=== PATIENT | female | born 1965 | race Caucasian/White ===

== ENCOUNTER → 2016-12-06 | Outpatient (CLI) | payer OTHER ==
--- NOTE | 2016-12-07 14:45 | XR ---
EXAMINATION TYPE: XR foot complete RT DATE OF EXAM: 12/06/2016 COMPARISON: NONE HISTORY: Right foot pain, fifth metatarsal TECHNIQUE: Three-view right foot FINDINGS: Plantar calcaneal heel spur is present. No acute fractures are evident. Joint spaces are pr eserved. Soft tissues are normal. IMPRESSION: 1. Plantar calcaneal heel spur.
== END | disposition home or self-care (01) ==
LOC: RADXRYALE 16:01
PROVIDERS: ATTEND Family Medicine
DX: M77.31 Calcaneal spur, right foot (principal)

== ENCOUNTER 2017-06-04 18:53 | Inpatient (IN) | payer OTHER ==
--- NOTE | 2017-06-04 19:39 | ED ---
Abdominal Pain HPI - General Chief Complaint: Abdominal Pain Stated Complaint: Abd.pain Time Seen by Provider: 06/04/17 19:22 Source: patient Mode of arrival: ambulatory Limitations: no limitations - History of Present Illness Initial Comments: Patient complains of right-sided abdominal pain. Her symptoms have been getting worse for couple weeks. She has nausea but no vomiting. She has no back pain. Her pain does not radiate anywhere. Nothing makes it better or worse. It has gotten worse over the last couple weeks. She has no blood in the stool or black or tarry stool. She has no chest pain, lightheadedness or dizziness. She has no pain or swelling in the legs and no palpitations. - Related Data Allergies Allergy/AdvReac Type Severity Reaction Status Date / Time morphine AdvReac Hallucinati Verified 06/04/17 19:17 ons Review of Systems ROS Statement: Those systems with pertinent positive or pertinent negative responses have been documented in the HPI. ROS Other: All systems not noted in ROS Statement are negative. Past Medical History Past Medical History: Diabetes Mellitus Additional Past Medical History / Comment(s): migraines History of Any Multi-Drug Resistant Organisms: None Reported Past Surgical History: Appendectomy, Hysterectomy, Orthopedic Surgery, Tubal Ligation Additional Past Surgical History / Comment(s): eye surgery Past Psychological History: No Psychological Hx Reported Smoking Status: Never smoker Past Alcohol Use History: None Reported Past Drug Use History: None Reported General Exam Limitations: no limitations General appearance: alert, in no apparent distress Head exam: Present: atraumatic, normocephalic, normal inspection Eye exam: Present: normal appearance, PERRL, EOMI. Absent: scleral icterus, conjunctival injection, periorbital swelling ENT exam: Present: normal exam, mucous membranes moist Neck exam: Present: normal inspection. Absent: tenderness, meningismus, lymphadenopathy Respiratory exam: Present: normal lung sounds bilaterally. Absent: respiratory distress, wheezes, rales, rhonchi, stridor Cardiovascular Exam: Present: regular rate, normal rhythm, normal heart sounds. Absent: systolic murmur, diastolic murmur, rubs, gallop, clicks GI/Abdominal exam: Present: soft, normal bowel sounds. Absent: distended, tenderness, guarding, rebound, rigid Extremities exam: Present: normal inspection, full ROM, normal capillary refill. Absent: tenderness, pedal edema, joint swelling, calf tenderness Back exam: Present: normal inspection Neurological exam: Present: alert, oriented X3, CN II-XII intact Psychiatric exam: Present: normal affect, normal mood Skin exam: Present: warm, dry, intact, normal color. Absent: rash Course Vital Signs 06/04/17 19:15 Temperature 98.2 F Pulse Rate 92 Respiratory 18 Rate Blood Pressure 181/78 O2 Sat by Pulse 99 Oximetry Medical Decision Making - Medical Decision Making Patient presents with several weeks of abdominal pain. She had a CAT scan done by her doctor prior to arrival. He demonstrates a large intra-abdominal mass, possibly necrotic tumor. She will be admitted to the hospital. I will consult surgery. Disposition Clinical Impression: Abdominal pain Disposition: ADMITTED IP TO THIS HOSP Condition: Fair Referrals: Kunal Man DO [Primary Care Provider] - 1-2 days
[2017-06-04] MEDS ORDERED: ONDANSETRON 4 MG/2 ML VIAL IVP PRN (21:15)
[2017-06-04 21:19] LABS: Basophils # (A) 0.1 k/uL (0-0.2); Basophils % (A) 1 %; Eosinophils # (A) 0.2 k/uL (0-0.7); Eosinophils % (A) 2 %; HGB 13.3 gm/dL (11.4-16.0); Lymphocytes # (A) 1.6 k/uL (1.0-4.8); Lymphocytes % (A) 18 %; MCH 26.4 pg (25.0-35.0); MCHC 32.5 g/dL (31.0-37.0); MCV 81.2 fL (80.0-100.0); Mean Platelet Volume 7.3; Monocytes # (A) 0.5 k/uL (0-1.0); Monocytes % (A) 5 %; Neutrophils # (A) 6.8 k/uL (1.3-7.7); Neutrophils % (A) 74 %; Platelet Count 297 k/uL (150-450); RBC 5.05 m/uL (3.80-5.40); RDW 12.8 % (11.5-15.5); WBC 9.2 k/uL (3.8-10.6)
[2017-06-04 21:21] LABS: Appearance,Urine Clear (Clear); Bilirubin,Urine Negative (Negative); Blood,Urine Negative (Negative); Color,Urine Light Yellow; Glucose,Urine (UA) Negative (Negative); Ketones,Urine Trace (Negative); Leukocyte Esterase,Urine Negative (Negative); Nitrite,Urine Negative (Negative); Protein,Urine Negative (Negative); Urobilinogen,Urine <2.0 mg/dL (<2.0)
[2017-06-04 21:45] LABS: ALT 26 U/L (9-52); AST 17 U/L (14-36); Albumin 4.1 g/dL (3.5-5.0); Alkaline Phosphatase 85 U/L (38-126); Amylase 46 U/L (30-110); Anion Gap 13 mmol/L; Blood Urea Nitrogen 12 mg/dL (7-17); Calcium 9.6 mg/dL (8.4-10.2); Carbon Dioxide 25 mmol/L (22-30); Chloride 100 mmol/L (98-107); Glucose 212 mg/dL (74-99); Lipase 109 U/L (23-300); Potassium 4.5 mmol/L (3.5-5.1); Sodium 138 mmol/L (137-145); Total Bilirubin 0.5 mg/dL (0.2-1.3)
[2017-06-04 21:51] LABS: INR 1.1 (<1.2); Prothrombin Time 10.3 sec (9.0-12.0)
[2017-06-04] MEDS: ACETAMINOPHEN TAB 325 MG TAB PO PRN (23:19)
[2017-06-04] MEDS: LACTATED RINGERS 1,000 ML IV SCH (23:19)
[2017-06-04 23:43] LABS: Partial Thromboplastin Time 21.9 sec (22.0-30.0)
[2017-06-05] MEDS: traZODone HCL 50 MG TAB PO SCH ×2 (00:33→20:14)
--- NOTE | 2017-06-05 02:59 | HP ---
HISTORY AND PHYSICAL DATE OF SERVICE: 06/04/2017 CHIEF COMPLAINT: Abdominal pain. HISTORY OF PRESENT ILLNESS: This 51-year-old woman with a past medical history of diabetes, history of migraines, section being followed by Dr. Man in the outpatient setting, was complaining of right-sided abdominal pain for the last 2 weeks. The pain is getting worse. The pain is not radiating anywhere and there is no associated hematochezia or melena. The patient because of increased symptoms, the patient went to Dr. Man's office also and outpatient CT scan showed possible large cystic mass of low-density mass involving the anterior aspect of the proximal ascending colon. The possibility of diverticular abscess or necrotic tumor was considered and patient was admitted to the hospital for further evaluation and treatment. There is no history of any fever, rigors. No history of headache, loss of consciousness or seizures. Appendiceal tumor was also possibility according to the CAT scan. PAST MEDICAL HISTORY: History of diabetes, migraines, appendectomy, section, hysterectomy, history of degenerative joint disease. MEDICATIONS: Prior to admission include home medications are: 1. Trazodone 50 mg q.h.s. 2. Januvia 100 mg p.o. daily. 3. Glucotrol 110 mg p.o. 4. Wellbutrin 75 mg p.o. 5. AcipHex 20 mg daily. 6. Lantus 18 units subcu daily. 7. Motrin 800 mg t.i.d. p.r.n. ALLERGIES: MORPHINE. FAMILY HISTORY: History of hypertension, history of myocardial infarction. SOCIAL HISTORY: Previous history of smoking. No history of current smoking. No alcohol intake. REVIEW OF SYSTEMS: ENT: No diminished hearing or vision. CARDIOVASCULAR: No angina or palpitations. Respiratory: No cough or hemoptysis. GI as mentioned earlier. : No dysuria. Nervous System: No numbness or weakness. Allergy/Immunology: No asthma or hay fever. MUSCULOSKELETAL: As mentioned earlier. Hematology/Oncology: No history of anemia. Endocrine: Diabetes mellitus. Constitutional: As mentioned earlier. Dermatology: Negative. Rheumatology: Negative. Psychiatric: As mentioned earlier. PHYSICAL EXAMINATION: Alert and oriented times three. Pulse 85, blood pressure 130/60, respiration 18, temperature 98.2, pulse ox 97% on room air. HEENT: Conjunctivae normal. Neck: No jugular venous distention. Cardiovascular: S1, S2 muffled. Respiration: Breath sounds diminished in the bases. No rhonchi and no crackles. ABDOMEN: Soft, mild diffuse discomfort and tenderness in the base of the abdomen status post healed hernia surgery. Otherwise no guarding, no rigidity. No mass palpable. Bowel sounds present. Legs: No edema and no swelling. Nervous system: Higher functions as mentioned earlier, moves all 4 limbs, no focal motor or sensory deficits. Lymphatics: No lymph nodes palpable in the neck, axillae or groin. Skin: No ulcer, rashes or bleeding. LABS: CBC within normal limits. INR is 1.1, glucose 212. UA noted. ASSESSMENT: 1. Right-sided abdominal pain and colonic mass, rule out diverticular abscess or tumor including appendiceal tumor. 2. Hiatal hernia. 3. Old granulomatous disease. 4. Diabetes type 2. 5. History of migraine. 6. History of section. 7. History of degenerative joint disease. 8. Remote history of nicotine dependence. RECOMMENDATIONS AND DISCUSSION: This 51-year-old woman who presented with multiple complex medical issues, we will monitor the patient closely. Continue the current management. Continue symptomatic treatment. Surgery has been consulted. Symptomatic treatment will be provided. Otherwise, DVT prophylaxis. Guarded prognosis because of multiple complex medical issues and further recommendations to follow. A copy of dictation being forwarded to Dr. Man who is the primary care physician JASON / ALISSON: [id number] /
[2017-06-05] MEDS: ACETAMINOPHEN TAB 325 MG TAB PO PRN (06:01)
[2017-06-05 07:54] LABS: Glucose,Whole Blood 180 mg/dL (75-99)
[2017-06-05] MEDS ORDERED: PEG 3350-NA SULF,BICARB,CL/KCL 4,000 ML BOTTLE PO ONE (08:12)
[2017-06-05] MEDS: LACTATED RINGERS 1,000 ML IV SCH ×3 (10:12→20:29)
[2017-06-05] MEDS: LINAGLIPTIN 5 MG TABLET PO SCH (10:13)
[2017-06-05] MEDS: buPROPion 75 MG TAB PO SCH (10:13)
[2017-06-05] MEDS: glipiZIDE 10 MG TAB PO SCH (10:14)
[2017-06-05] MEDS: HEPARIN SODIUM,PORCINE 5,000 UNIT/ML 1 ML VIAL SQ SCH ×2 (10:14→20:15)
[2017-06-05] MEDS: PANTOPRAZOLE 40 MG TABLET PO SCH (10:14)
[2017-06-05] MEDS: INSULIN DETEMIR 100 UNIT/ML 10 ML VIAL SQ SCH (10:31)
[2017-06-05 11:32] LABS: Glucose,Whole Blood 194 mg/dL (75-99)
[2017-06-05] MEDS ORDERED: IBUPROFEN 400 MG TAB PO STA (11:39)
[2017-06-05] MEDS ORDERED: SUMAtriptan SUCCINATE 50 MG TAB PO STA (12:31)
--- NOTE | 2017-06-05 12:32 | P.GSCN ---
History of Present Illness Consult date: 06/05/17 Reason for Consult: Abdominal pain History of present illness: A 51-year-old female presented on the day of admission to the emergency room to be evaluated for persistent onset several weeks of right side abdominal pain. Patient stated the symptoms had been getting progressively worse felt nausea no vomiting. stated the pain did not radiate anywhere. Nothing seemed to make it better nothing seemed to make it worse no blood in the stool. points to the right lower abdominal wall as to the reference point states that she was seen in her family doctor's office in the outpatient setting on the day of admission was complaining of the right side abdominal pain. Dr. barrientos ordered an outpatient CAT abdominal pelvis scan. CAT scan was done that showed a large cystic mass of low density in the anterior aspect of the proximal ascending colon. Possible diverticular abscess, necrotic tumor to be considered also consider a tumor of the appendix Subsequently the patient is being seen by surgical service for the above mentioned symptoms Patient states her last colonoscopy was anywhere between 10 and 14 years ago with no acute findings Review of Systems Essentially unremarkable except as mentioned in the present illness Past Medical History Past Medical History: Diabetes Mellitus Additional Past Medical History / Comment(s): migraines History of Any Multi-Drug Resistant Organisms: None Reported Past Surgical History: Appendectomy, Section, Hysterectomy, Orthopedic Surgery, Tubal Ligation Additional Past Surgical History / Comment(s): eye surgery(on muscles) , lt knee arthrosocpy x2, rt shoulder rotator cuff, lt shoulder bone spur/arthritis Past Anesthesia/Blood Transfusion Reactions: No Reported Reaction Smoking Status: Former smoker - Past Family History Father Family Medical History: Hypertension Mother Family Medical History: Diabetes Mellitus, Hypertension, Myocardial Infarction ( [place]) Additional Family Medical History / Comment(s): mi x3 Medications and Allergies Home Medications Medication Instructions Recorded Confirmed Type Ibuprofen [Motrin] 800 mg PO TID PRN 06/04/17 06/04/17 History Insulin Glargine,Hum.rec.anlog 18 unit SQ DAILY 06/04/17 06/04/17 History [Lantus Solostar] RABEprazole SODIUM [Aciphex] 20 mg PO DAILY 06/04/17 06/04/17 History buPROPion [Wellbutrin] 75 mg PO DAILY 06/04/17 06/04/17 History glipiZIDE [Glucotrol] 10 mg PO DAILY 06/04/17 06/04/17 History sitaGLIPtin [Januvia] 100 mg PO DAILY 06/04/17 06/04/17 History traZODone HCL 50 mg PO HS 06/04/17 06/04/17 History Allergies Allergy/AdvReac Type Severity Reaction Status Date / Time morphine AdvReac Hallucinati Verified 06/04/17 19:49 ons Surgical - Exam Vital Signs Temp Pulse Resp BP Pulse Ox 98.2 F 92 18 181/78 99 06/04/17 19:15 06/04/17 19:15 06/04/17 19:15 06/04/17 19:15 06/04/17 19:15 GENERAL APPEARANCE: Pleasant 51-year-old patient is alert, oriented, in no acute distress complaint this morning is a migraine headache. VITAL SIGNS: Reviewed HEENT: Head is normocephalic and atraumatic. Pupils are equal and reactive. The nares are patent. Oropharynx is clear without lesions. NECK: Supple without lymphadenopathy. Traches midline. HEART: S1, S2. Regular rate and rhythm. Denying any chest pain when questioning no murmur LUNGS: No crackles or wheezes are heard. Adequate air movement bilaterally no cough on room air ABDOMEN: Soft, tenderness on palpitation to the right lower abdominal wall nondistended with good bowel sounds. No peritoneal signs. No palpable organomegaly or masses. States last bowel movement was Friday this week EXTREMITIES: Normal skin color and turgor. No cyanosis, rash, ulceration, clubbing or edema. Radial pedal pulses are 2/4 bilaterally. NEUROLOGICAL: No focal deficits. Strength and sensation are grossly intact. Results - Labs 06/04/17 21:00 06/04/17 21:15 Abnormal Lab Results - Last 24 Hours (Table) 06/04/17 06/04/17 06/04/17 Range/Units 21:00 21:15 21:15 APTT 21.9 L (22.0-30.0) sec Glucose 212 H (74-99) mg/dL POC Glucose (mg/dL) (75-99) mg/dL C-Reactive Protein (<10.0) mg/L Ur Specific [place] 1.040 H (1.001-1.035) Urine Ketones Trace H (Negative) 06/05/17 06/05/1706/05/18 Range/Units 07:38 07:52 11:22 APTT (22.0-30.0) sec Glucose (74-99) mg/dL POC Glucose (mg/dL) 180 H 194 H (75-99) mg/dL C-Reactive Protein 17.5 H (<10.0) mg/L Ur Specific [place] (1.001-1.035) Urine Ketones (Negative) Diabetes panel 06/04/17 Range/Units 21:15 Sodium 138 (137-145) mmol/L Potassium 4.5 (3.5-5.1) mmol/L Chloride 100 (98-107) mmol/L Carbon Dioxide 25 (22-30) mmol/L BUN 12 (7-17) mg/dL Creatinine 0.54 (0.52-1.04) mg/dL Glucose 212 H (74-99) mg/dL Calcium 9.6 (8.4-10.2) mg/dL AST 17 (14-36) U/L ALT 26 (9-52) U/L Alkaline Phosphatase 85 (38-126) U/L Total Protein 7.0 (6.3-8.2) g/dL Albumin 4.1 (3.5-5.0) g/dL Calcium panel 06/04/17 Range/Units 21:15 Calcium 9.6 (8.4-10.2) mg/dL Albumin 4.1 (3.5-5.0) g/dL Pituitary panel 06/04/17 Range/Units 21:15 Sodium 138 (137-145) mmol/L Potassium 4.5 (3.5-5.1) mmol/L Chloride 100 (98-107) mmol/L Carbon Dioxide 25 (22-30) mmol/L BUN 12 (7-17) mg/dL Creatinine 0.54 (0.52-1.04) mg/dL Glucose 212 H (74-99) mg/dL Calcium 9.6 (8.4-10.2) mg/dL Adrenal panel 06/04/17 Range/Units 21:15 Sodium 138 (137-145) mmol/L Potassium 4.5 (3.5-5.1) mmol/L Chloride 100 (98-107) mmol/L Carbon Dioxide 25 (22-30) mmol/L BUN 12 (7-17) mg/dL Creatinine 0.54 (0.52-1.04) mg/dL Glucose 212 H (74-99) mg/dL Calcium 9.6 (8.4-10.2) mg/dL Total Bilirubin 0.5 (0.2-1.3) mg/dL AST 17 (14-36) U/L ALT 26 (9-52) U/L Alkaline Phosphatase 85 (38-126) U/L Total Protein 7.0 (6.3-8.2) g/dL Albumin 4.1 (3.5-5.0) g/dL Assessment and Plan Assessment: Impression Present on admission persistent right lower quadrant abdominal pain suspect due to diverticular abscess or necrotic tumor as indicated on a computed tomography scan abdomen and pelvis done on June 04 History migraine headaches Elevated C-reactive protein present on admission CAT scan abdomen and pelvis imagings indicate possible appendical tumor Type 2 diabetes insulin requiring Surgical history appendectomy and a hysterectomy Plan We'll start the GoLYTELY bowel prep now Clear liquid diet Nothing by mouth after midnight Scheduled tomorrow for a right colectomy per Dr. aguilar DVT and GI prophylaxis Pain control Surgical consultation note dictated for The above impression and plan of care have been discussed and directed by signing physician. Roberta Palencia nurse practitioner acting as scribe for signing physician.
[2017-06-05] MEDS ORDERED: BUTALB/APAP/CAFF 50-325-40MG TAB PO STA (15:57)
[2017-06-05] MEDS: HYDROcodone/APAP 5-325MG 1 EACH TAB PO PRN (16:41)
[2017-06-05 17:00] LABS: Glucose,Whole Blood 121 mg/dL (75-99)
--- NOTE | 2017-06-05 18:24 | PN ---
PROGRESS NOTE DATE OF SERVICE: 06/05/2017 This 51-year-old woman who was admitted with abdominal pain also had right-sided abdominal swelling and possibly a chronic mass also. No chest pain. No palpitations. No fever. PHYSICAL EXAMINATION: Alert and oriented x3. Pulse 85, blood pressure 130/60, respiration 18, temperature 98.2, pulse ox 97% on room air. HEENT: Conjunctivae normal. NECK: No jugular venous distention. CARDIOVASCULAR SYSTEM: S1, S2 muffled. RESPIRATORY SYSTEM: Breath sounds diminished at the bases. No rhonchi. No crackles. ABDOMEN: Soft. Mild diffuse tenderness on the right side. LEGS: No edema. No swelling. NERVOUS SYSTEM: No focal deficit. LABS: Accu-Cheks 180. Glucose 212. CBC within normal limits. ASSESSMENT: 1. Right-sided abdominal pain and colonic mass. Rule out diverticular abscess or tumor, including appendiceal tumor. 2. Hiatal hernia. 3. Old granulomatous disease. 4. Diabetes mellitus, type 2. 5. History of migraine. 6. History of section. 7. History of degenerative joint disease. 8. Remote history of nicotine dependence. RECOMMENDATIONS AND DISCUSSION: In this 51-year-old woman who presented with multiple complex medical issues, we will monitor the patient closely, continue the current medications, continue with symptomatic treatment. The patient is scheduled for tentative surgery by Dr. Bowling for tomorrow. Otherwise, continue to monitor. DVT prophylaxis. Incentive spirometry. Otherwise basically the differential is between diverticular abscess and necrotic tumor. See orders for further details. Prognosis guarded. Discussed with the patient at length. Closely follow with Dr. Bowling. Broad-spectrum IV antibiotic coverage. MMODL / IJN: [id number] /
[2017-06-05 18:51] LABS: Hemoglobin A1C 7.9 % (4.0-6.0)
[2017-06-05] MEDS: BUTALB/APAP/CAFF 50-325-40MG TAB PO PRN (20:14)
[2017-06-05] MEDS: PIPERACILLIN-TAZOBACTAM 3.375 GM in DEXTROSE/WATER 1 50ML.BAG IVPB SCH (20:15)
[2017-06-06] MEDS: PIPERACILLIN-TAZOBACTAM 3.375 GM in DEXTROSE/WATER 1 50ML.BAG IVPB SCH ×3 (02:04→16:42)
[2017-06-06 06:12] LABS: Glucose,Whole Blood 125 mg/dL (75-99)
[2017-06-06] MEDS: LACTATED RINGERS 1,000 ML IV SCH ×3 (06:18→17:48)
[2017-06-06 07:48] LABS: Basophils % (A) 1 %; Eosinophils # (A) 0.2 k/uL (0-0.7); Eosinophils % (A) 3 %; HCT 40.5 % (34.0-46.0); HGB 12.9 gm/dL (11.4-16.0); Lymphocytes # (A) 1.2 k/uL (1.0-4.8); Lymphocytes % (A) 23 %; MCH 26.2 pg (25.0-35.0); MCHC 31.8 g/dL (31.0-37.0); MCV 82.2 fL (80.0-100.0); Mean Platelet Volume 7.4; Monocytes # (A) 0.3 k/uL (0-1.0); Monocytes % (A) 7 %; Neutrophils # (A) 3.4 k/uL (1.3-7.7); Neutrophils % (A) 66 %; Platelet Count 297 k/uL (150-450); RBC 4.93 m/uL (3.80-5.40); RDW 12.8 % (11.5-15.5); WBC 5.1 k/uL (3.8-10.6)
[2017-06-06 07:55] LABS: Anion Gap 13 mmol/L; Blood Urea Nitrogen 6 mg/dL (7-17); Calcium 9.6 mg/dL (8.4-10.2); Carbon Dioxide 24 mmol/L (22-30); Chloride 103 mmol/L (98-107); Glucose 145 mg/dL (74-99); Potassium 4.4 mmol/L (3.5-5.1); Sodium 140 mmol/L (137-145)
[2017-06-06] MEDS: HYDROcodone/APAP 5-325MG 1 EACH TAB PO PRN (07:57)
[2017-06-06 08:52] LABS: Glucose,Whole Blood 163 mg/dL (75-99)
[2017-06-06] MEDS: ONDANSETRON 4 MG/2 ML VIAL IVP PRN (09:43)
[2017-06-06] MEDS ORDERED: IV FLUID CONTINUATION 1,000 ML IV ONE (10:02)
[2017-06-06] MEDS ORDERED: MIDAZOLAM 2 MG/2 ML VIAL IVP ONE (10:15)
[2017-06-06] MEDS ORDERED: fentaNYL (PF) 50 MCG/ML 2 ML AMP IVP ONE (10:15)
[2017-06-06] MEDS ORDERED: PROMETHAZINE INJ 25 MG/ML 1 ML VIAL IVPB ONE (10:56)
[2017-06-06] MEDS ORDERED: NALOXONE 0.4 MG/ML 1 ML VIAL IV PRN (11:00)
[2017-06-06] MEDS ORDERED: diphenhydrAMINE 50 MG/ML 1 ML VIAL IVP PRN (11:00)
[2017-06-06] MEDS ORDERED: SCOPOLAMINE 1.5MG/72HR PATCH TRANSDERM ONE (11:06)
[2017-06-06] MEDS ORDERED: HEPARIN SODIUM,PORCINE 5,000 UNIT/ML 1 ML VIAL SQ ONE (11:06)
[2017-06-06 11:07] LABS: Glucose,Whole Blood 179 mg/dL (75-99)
[2017-06-06] MEDS ORDERED: NEOSTIGMINE 1 MG/ML 10 ML VIAL ONE (11:39)
[2017-06-06] MEDS ORDERED: PROPOFOL 10 MG/ML 20 ML VIAL IV ONE (11:39)
[2017-06-06] MEDS ORDERED: ROCURONIUM BROMIDE 10 MG/ML 10 ML VIAL IV ONE (11:39)
[2017-06-06] MEDS ORDERED: fentaNYL (PF) 50 MCG/ML 2 ML AMP ONE (11:39)
[2017-06-06] MEDS ORDERED: LIDOCAINE 1% INJ 10MG/ML (20 ML MDV) ONE (11:39)
[2017-06-06] MEDS ORDERED: MIDAZOLAM 2 MG/2 ML VIAL ONE (11:39)
[2017-06-06] MEDS ORDERED: GLYCOPYRROLATE 0.2 MG/ML 2 ML VIAL ONE (11:39)
[2017-06-06] MEDS ORDERED: SUCCINYLCHOLINE CHLORIDE 100 MG/5 ML SYR IV ONE (11:39)
[2017-06-06] MEDS ORDERED: ceFAZolin 1,000 MG/50 ML BAG (PMX) IVPB ONE (12:05)
[2017-06-06] MEDS: glipiZIDE 10 MG TAB PO SCH (12:20)
[2017-06-06] MEDS: INSULIN DETEMIR 100 UNIT/ML 10 ML VIAL SQ SCH (12:20)
[2017-06-06] MEDS: HEPARIN SODIUM,PORCINE 5,000 UNIT/ML 1 ML VIAL SQ SCH ×2 (12:20→21:14)
[2017-06-06] MEDS ORDERED: LACTATED RINGERS 1,000 ML IV ONE (12:58)
[2017-06-06] MEDS: BUPIVACAINE (PF) 0.5% 50 ML, HYDROMORPHONE (PF) 5 MG in SODIUM CHLORIDE 0.9% 200 ML EPIDURAL PRN ×3 (13:21→14:42)
[2017-06-06] MEDS ORDERED: LABETALOL 5 MG/ML VIAL MDV IVP ONE ×2 (13:30→14:45)
[2017-06-06] MEDS ORDERED: BUPIVACAINE (PF) 0.25% 30 ML VIAL EPIDURAL ONE (13:32)
[2017-06-06] MEDS ORDERED: METOCLOPRAMIDE 5 MG/ML 2 ML VIAL IVP PRN (13:41)
[2017-06-06] MEDS ORDERED: ONDANSETRON 4 MG/2 ML VIAL IVP PRN (13:41)
[2017-06-06 14:59] LABS: Glucose,Whole Blood 210 mg/dL (75-99)
[2017-06-06] MEDS ORDERED: INSULIN ASPART 100 UNIT/ML 1 ML 10 ML VIAL SQ ONE ×2 (15:01→22:07)
--- NOTE | 2017-06-06 15:09 | P.OP ---
Date of Procedure: 06/06/17 Preoperative Diagnosis: Right colon mass Postoperative Diagnosis: Right colon mass, deferred pathology Procedure(s) Performed: Right colectomy Partial omentectomy Anesthesia: JORDAN Surgeon: Stefano Bowling Estimated Blood Loss (ml): 100 Pathology: other (Right colon, omentum) Condition: stable Disposition: PACU Description of Procedure: The patient's placed on the operative table in the supine position. She received general anesthesia. Her abdomen was prepped and draped usual sterile fashion. The area was entered through a Incision. The Bookwalter retractors placed a wound. The abdomen explored. There was an inflammatory mass in the proximal right colon. The omentum was caked on top of the mass. The liver transverse colon descending colon and sigmoid colon appeared normal. At this point the right colon was mobilized by dividing the white line of Toldt's. And then the inflamed area was dissected free from the abdominal wall. Next the terminal ileum was transected with a GI stapler. And then the proximal transverse colon was transected with a GI stapler. Using the LigaSure device the mesentery the bowel was divided. And then the specimen was sent to pathology. A portion of omentum was transected and also sent to pathology. Next a [id number] functional end-to-end staple anastomosis created. This was performed using the CINDY and TA stapler. A 3-0 GI silk suture was used as a crotch stitch. The abdomen was irrigated there is no bleeding seen. The clean instruments were used. The fascia is closed loop # 1 PDS suture. The skin was closed with radha. Patient was sent to recovery in stable condition.
[2017-06-06] MEDS: PANTOPRAZOLE 40 MG TABLET PO SCH (16:23)
[2017-06-06] MEDS: LINAGLIPTIN 5 MG TABLET PO SCH (16:23)
[2017-06-06] MEDS: buPROPion 75 MG TAB PO SCH (16:23)
[2017-06-06 17:30] LABS: Glucose,Whole Blood 202 mg/dL (75-99)
[2017-06-06] MEDS: D5-0.45% NACL WITH KCL 20MEQ/L 1,000 ML IV SCH ×2 (18:45→22:06)
--- NOTE | 2017-06-06 21:01 | PN ---
PROGRESS NOTE DATE OF SERVICE: 06/06/2017 This 51-year-old woman who was admitted with right-sided abdominal pain and colonic mass underwent right colectomy and partial omentectomy by Dr. Bowling. The biopsies are pending at this time. No chest pain. No palpitations. No fever. Patient is complaining of abdominal pain. On exam, patient is drowsy post surgery. Pulse 89, blood pressure 130/64, respiration 16, temperature 98.2, pulse ox 96% on room air. HEENT: Conjunctivae normal. NECK: No jugular venous distention. CARDIOVASCULAR SYSTEM: S1, S2 muffled. RESPIRATORY SYSTEM: Breath sounds diminished at the bases. No rhonchi. No crackles. ABDOMEN: Soft. Status post surgery. LEGS: No edema. No swelling. NERVOUS SYSTEM: No focal deficit. LABS: CBC within normal limits. Glucose 145 and 163. ASSESSMENT: 1. Right-sided colonic mass, status post right colectomy as well as partial omentectomy. 2. Hiatal hernia. 3. Old granulomatous disease. 4. Diabetes mellitus, type 2. 5. History of migraine. 6. History of . 7. History of degenerative joint disease. 8. Remote history of nicotine dependence. RECOMMENDATIONS AND DISCUSSION: I recommend to continue current medication, continue symptomatic treatment. Otherwise at this time I would recommend incentive spirometry, DVT prophylaxis, pain medication. Closely follow with Surgery. Await biopsy. Guarded prognosis. Further recommendations to follow. MMODL / IJN: [id number] /
[2017-06-06 21:06] LABS: Glucose,Whole Blood 322 mg/dL (75-99)
[2017-06-06] MEDS: NALBUPHINE 10 MG/ML AMPUL IV PRN (21:09)
[2017-06-06] MEDS: traZODone HCL 50 MG TAB PO SCH (21:09)
[2017-06-06] MEDS ORDERED: INSULIN DETEMIR 100 UNIT/ML 10 ML VIAL SQ ONE (21:22)
[2017-06-07] MEDS: PIPERACILLIN-TAZOBACTAM 3.375 GM in DEXTROSE/WATER 1 50ML.BAG IVPB SCH ×4 (00:25→23:46)
[2017-06-07 00:31] LABS: Glucose,Whole Blood 226 mg/dL (75-99)
[2017-06-07] MEDS: INSULIN ASPART 100 UNIT/ML 1 ML 10 ML VIAL SQ SCH ×5 (01:11→23:57)
[2017-06-07] MEDS: LACTATED RINGERS 1,000 ML IV SCH ×4 (04:58→22:01)
[2017-06-07] MEDS: D5-0.45% NACL WITH KCL 20MEQ/L 1,000 ML IV SCH ×3 (06:15→18:20)
[2017-06-07 06:30] LABS: Glucose,Whole Blood 215 mg/dL (75-99)
[2017-06-07] MEDS: NALBUPHINE 10 MG/ML AMPUL IV PRN ×2 (06:57→14:17)
[2017-06-07] MEDS: glipiZIDE 10 MG TAB PO SCH (07:06)
[2017-06-07 07:19] LABS: Basophils % (A) 0 %; Eosinophils # (A) 0.1 k/uL (0-0.7); Eosinophils % (A) 1 %; HCT 36.4 % (34.0-46.0); HGB 11.8 gm/dL (11.4-16.0); Lymphocytes # (A) 1.2 k/uL (1.0-4.8); Lymphocytes % (A) 16 %; MCHC 32.3 g/dL (31.0-37.0); MCV 83.4 fL (80.0-100.0); Mean Platelet Volume 7.2; Monocytes # (A) 0.5 k/uL (0-1.0); Monocytes % (A) 6 %; Neutrophils # (A) 5.9 k/uL (1.3-7.7); Neutrophils % (A) 76 %; Platelet Count 250 k/uL (150-450); RBC 4.37 m/uL (3.80-5.40); RDW 13.1 % (11.5-15.5); WBC 7.9 k/uL (3.8-10.6)
[2017-06-07] MEDS ORDERED: INSULIN ASPART 100 UNIT/ML 1 ML 10 ML VIAL SQ SCH (07:30)
[2017-06-07 07:35] LABS: Anion Gap 9 mmol/L; Blood Urea Nitrogen 6 mg/dL (7-17); Calcium 8.2 mg/dL (8.4-10.2); Carbon Dioxide 30 mmol/L (22-30); Chloride 96 mmol/L (98-107); Glucose 197 mg/dL (74-99); Potassium 4.3 mmol/L (3.5-5.1); Sodium 135 mmol/L (137-145)
[2017-06-07] MEDS: ALVIMOPAN 12 MG CAPSULE PO SCH ×2 (08:16→19:45)
[2017-06-07] MEDS: PANTOPRAZOLE 40 MG TABLET PO SCH (08:17)
[2017-06-07] MEDS: buPROPion 75 MG TAB PO SCH (08:17)
[2017-06-07] MEDS: INSULIN DETEMIR 100 UNIT/ML 10 ML VIAL SQ SCH (08:17)
[2017-06-07] MEDS: HEPARIN SODIUM,PORCINE 5,000 UNIT/ML 1 ML VIAL SQ SCH ×2 (08:17→19:45)
[2017-06-07] MEDS: LINAGLIPTIN 5 MG TABLET PO SCH (08:28)
--- NOTE | 2017-06-07 08:38 | P.PN ---
Progress Note - Text Date: 06/07/2017 Time: 07 The patient is status post, right colectomy, postoperative day number 1 The patient has no complaints of nausea vomiting or headache. The patient has exhibited some mild itching which seems to be subsiding. The patient does not complain of any lower extremity numbness or weakness. The epidural is running at 11 mL per hour. The epidural will be maintained and adjusted as needed.
[2017-06-07] MEDS: ONDANSETRON 4 MG/2 ML VIAL IVP PRN ×3 (10:05→21:42)
[2017-06-07] MEDS: BUPIVACAINE (PF) 0.5% 50 ML, HYDROMORPHONE (PF) 5 MG in SODIUM CHLORIDE 0.9% 200 ML EPIDURAL PRN (10:39)
[2017-06-07 11:50] LABS: Glucose,Whole Blood 211 mg/dL (75-99)
[2017-06-07 12:41] VITALS: BMI 29.9
--- NOTE | 2017-06-07 13:56 | P.PN ---
Progress Note - Text Progress Note Date: 06/07/17 Patient seen and evaluated. She is comfortable. Minimal nausea. She has an epidural. Family is at bedside. Continue with hospitalization. She reports scoliosis of the spine that worsens headaches. Will monitor.
--- NOTE | 2017-06-07 14:20 | PN ---
PROGRESS NOTE DATE OF SERVICE: 06/07/2017. This 51-year-old woman is admitted right-sided colonic mass, underwent right colectomy as well as partial omentectomy. Biopsies are pending at this time. No chest pain. No palpitations. No fever. PHYSICAL EXAM: Alert and oriented times three. Pulse 94, blood pressure 106/60, respirations 16, temperature 97.2, pulse ox 98% on 2 L. HEENT is conjunctivae normal. Neck is no jugular venous distention. CARDIOVASCULAR: S1, S2. Respiratory: Breath sounds diminished in the bases. No rhonchi. No crackles. ABDOMEN: Soft, status post surgery. Legs are no edema. No swelling. Central nervous system: No focal deficits. Legs no edema. No swelling. LABS: CBC within normal limits. Sodium 135. ASSESSMENT: 1. Right-sided colonic mass status post right colectomy as well as partial omentectomy. 2. Hiatal hernia. 3. Old granulomatous disease. 4. Diabetes type 2. 5. History of migraines. 6. History of . 7. Degenerative joint disease. 8. Remote history of nicotine dependence. RECOMMENDATIONS AND DISCUSSION: Recommend to continue current medications, management and symptomatic treatment. Otherwise, at this time, we will monitor the patient closely. I would recommend incentive spirometry. Advance diet per surgery. Await biopsy report. Further recommendations to follow. MMODL / IJN: [id number] /
[2017-06-07 18:19] LABS: Glucose,Whole Blood 257 mg/dL (75-99)
--- NOTE | 2017-06-07 18:50 | P.PN ---
Subjective Progress Note Date: 06/07/17 The patient is a 51-year-old female status post right hemicolectomy by Dr. Bowling. She is comfortable. Minimal nausea. She has an epidural. Family is at bedside. Objective - Vital Signs Vital signs: Vital Signs Temp 97.3 F L 06/07/17 10:52 Pulse 78 06/07/17 10:52 Resp 16 06/07/17 10:52 BP 143/65 06/07/17 10:52 Pulse Ox 95 06/07/17 10:52 Intake & Output 06/06/17 06/07/17 06/07/17 18:59 06:59 18:59 Intake Total 1422 49.95 231.15 Output Total 270 1300 Balance 1152 49.95 -1068.85 Weight 81.647 kg Intake: IV 1422 Intake, IV Titration 49.95 106.15 Amount Bupivacaine (Pf) 0.5% 50 49.95 106.15 ml Hydromorphone (Pf) 5 mg In Sodium Chloride 0.9 % 200 ml @ Per Protocol EPIDURAL .Q0M PRN Rx#: [id number] Oral 125 Output: Urine 170 1300 Estimated Blood Loss 100 Other: Voiding Method Indwelling Catheter Indwelling Catheter - Exam GENERAL: Well developed and in no acute distress. Pleasant. HEENT: No sclera icterus. Extraocular movements grossly intact. Moist buccal mucosa. Head is atraumatic, normocephalic. Hears conversational speech. No nasal drainage. NECK: Supple without lymphadenopathy. No JV distention. CHEST: Non-labored respirations and equal bilateral excursions. CARDIOVASCULAR: Regular rate and rhythm. Palpable 2+ radial pulses. ABDOMEN: Soft, Nondistended. Dressings clean dry and intact MUSCULOSKELETAL: No clubbing, cyanosis or edema. NEUROLOGIC: No focal or lateralizing signs. PSYCH: Appropriate affect. Alert and oriented to person, place and time. SKIN: Good skin turgor. Well perfused. - Labs CBC & Chem 7: 06/07/17 06:57 06/07/17 06:57 Labs: Abnormal Lab Results - Last 24 Hours (Table) 06/06/17 06/06/17 06/06/17 Range/Units 14:57 17:08 21:05 Sodium (137-145) mmol/L Chloride (98-107) mmol/L BUN (7-17) mg/dL Glucose (74-99) mg/dL POC Glucose (mg/dL) 210 H 202 H 322 H (75-99) mg/dL Calcium (8.4-10.2) mg/dL 06/07/17 06/07/17 06/07/17 Range/Units 00:21 06:10 06:57 Sodium 135 L (137-145) mmol/L Chloride 96 L (98-107) mmol/L BUN 6 L (7-17) mg/dL Glucose 197 H (74-99) mg/dL POC Glucose (mg/dL) 226 H 215 H (75-99) mg/dL Calcium 8.2 L (8.4-10.2) mg/dL 06/07/17 Range/Units 11:48 Sodium (137-145) mmol/L Chloride (98-107) mmol/L BUN (7-17) mg/dL Glucose (74-99) mg/dL POC Glucose (mg/dL) 211 H (75-99) mg/dL Calcium (8.4-10.2) mg/dL Microbiology - Last 24 Hours (Table) 06/05/17 23:28 Urine Culture - Final Urine,Clean Catch 06/05/17 18:12 Blood Culture - Preliminary Blood No Growth after 24 hours Assessment and Plan (1) S/P right hemicolectomy Current Visit: Yes Status: Acute Code(s): Z90.49 - ACQUIRED ABSENCE OF OTHER SPECIFIED PARTS OF DIGESTIVE TRACT SNOMED Code(s): 722591117 (2) Obesity (BMI 30.0-34.9) Current Visit: Yes Status: Acute Code(s): E66.9 - OBESITY, UNSPECIFIED SNOMED Code(s): 817307775 (3) Scoliosis Current Visit: Yes Status: Acute Code(s): M41.9 - SCOLIOSIS, UNSPECIFIED SNOMED Code(s): 890178093 Plan: 1. Continue with hospitalization. 2. She reports scoliosis of the spine that worsens headaches. 3. Will monitor.
[2017-06-07] MEDS: traZODone HCL 50 MG TAB PO SCH (21:35)
[2017-06-07 23:57] LABS: Glucose,Whole Blood 236 mg/dL (75-99)
[2017-06-08 05:14] LABS: Glucose,Whole Blood 240 mg/dL (75-99)
[2017-06-08] MEDS: INSULIN ASPART 100 UNIT/ML 1 ML 10 ML VIAL SQ SCH ×3 (05:17→17:41)
[2017-06-08] MEDS: ONDANSETRON 4 MG/2 ML VIAL IVP PRN (05:18)
[2017-06-08] MEDS: D5-0.45% NACL WITH KCL 20MEQ/L 1,000 ML IV SCH (05:59)
[2017-06-08] MEDS: ACETAMINOPHEN TAB 325 MG TAB PO PRN (06:23)
[2017-06-08 07:21] LABS: Anion Gap 8 mmol/L; Blood Urea Nitrogen 3 mg/dL (7-17); Calcium 8.3 mg/dL (8.4-10.2); Carbon Dioxide 24 mmol/L (22-30); Chloride 94 mmol/L (98-107); Glucose 244 mg/dL (74-99); Potassium 4.3 mmol/L (3.5-5.1); Sodium 126 mmol/L (137-145)
[2017-06-08 07:24] LABS: Basophils % (A) 0 %; Eosinophils % (A) 0 %; HCT 36.3 % (34.0-46.0); HGB 12.2 gm/dL (11.4-16.0); Lymphocytes # (A) 0.6 k/uL (1.0-4.8); Lymphocytes % (A) 6 %; MCH 27.6 pg (25.0-35.0); MCHC 33.6 g/dL (31.0-37.0); MCV 82.1 fL (80.0-100.0); Mean Platelet Volume 6.8; Monocytes # (A) 0.4 k/uL (0-1.0); Monocytes % (A) 4 %; Neutrophils # (A) 8.3 k/uL (1.3-7.7); Neutrophils % (A) 88 %; Platelet Count 243 k/uL (150-450); RBC 4.43 m/uL (3.80-5.40); RDW 12.7 % (11.5-15.5); WBC 9.5 k/uL (3.8-10.6)
[2017-06-08] MEDS ORDERED: DEXAMETHASONE SOD PHOSPHATE 10 MG/ML 1 ML VIAL IV STA (08:20)
[2017-06-08] MEDS ORDERED: SODIUM CHLORIDE 0.9% 2,000 ML IV ONE (08:21)
[2017-06-08] MEDS: KETOROLAC 30 MG/ML 1 ML VIAL IVP SCH ×3 (08:53→17:42)
[2017-06-08] MEDS: BUTALB/APAP/CAFF 50-325-40MG TAB PO PRN ×2 (09:35→15:49)
[2017-06-08] MEDS: HEPARIN SODIUM,PORCINE 5,000 UNIT/ML 1 ML VIAL SQ SCH ×2 (09:35→20:25)
[2017-06-08] MEDS: PANTOPRAZOLE 40 MG TABLET PO SCH (09:36)
[2017-06-08] MEDS: buPROPion 75 MG TAB PO SCH (09:36)
[2017-06-08] MEDS: ALVIMOPAN 12 MG CAPSULE PO SCH ×2 (09:36→20:25)
[2017-06-08] MEDS ORDERED: SUMAtriptan SUCCINATE 6 MG/0.5 ML VIAL SQ STA (10:08)
[2017-06-08 10:09] LABS: Glucose,Whole Blood 202 mg/dL (75-99)
[2017-06-08] MEDS: INSULIN DETEMIR 100 UNIT/ML 10 ML VIAL SQ SCH ×2 (10:12→10:43)
[2017-06-08] MEDS ORDERED: 0.45% NACL WITH KCL 20 MEQ/L 1,000 ML IV SCH (11:00)
[2017-06-08] MEDS: PIPERACILLIN-TAZOBACTAM 3.375 GM in DEXTROSE/WATER 1 50ML.BAG IVPB SCH ×2 (11:06→15:53)
[2017-06-08 11:08] LABS: Glucose,Whole Blood 253 mg/dL (75-99)
[2017-06-08] MEDS: glipiZIDE 10 MG TAB PO SCH ×2 (11:18→13:14)
[2017-06-08] MEDS: LINAGLIPTIN 5 MG TABLET PO SCH (11:18)
--- NOTE | 2017-06-08 12:09 | P.PN ---
Subjective Progress Note Date: 06/08/17 Principal diagnosis: Abdominal pain This is a 51-year-old female patient who was admitted to the hospital secondary to right-sided abdominal pain. She was found to have a colonic mass and underwent right colectomy as well as partial omentectomy. This is postoperative day 2. She has had some nausea and vomiting secondary to migraine. She has received Fioricet and other medication which has not been successful. We will give her dose of Imitrex this morning to try to abort the migraine. She states her abdomen feels well and if she did not have the migraine she would not have any nausea or vomiting. She is hemodynamically stable. Remains on IV fluids. Afebrile. Objective - Vital Signs Vital signs: Vital Signs Temp 98.5 F 06/08/17 08:05 Pulse 86 06/08/17 08:05 Resp 16 06/08/17 08:05 BP 157/77 06/08/17 08:05 Pulse Ox 99 06/08/17 08:05 Intake & Output 06/07/17 06/08/17 06/08/17 18:59 06:59 18:59 Intake Total 231.15 2000 Output Total 1300 2950 Balance -1068.85 -950 Weight 81.647 kg Intake: Intake, IV Titration 106.15 2000 Amount Bupivacaine (Pf) 0.5% 50 106.15 ml Hydromorphone (Pf) 5 mg In Sodium Chloride 0.9 % 200 ml @ Per Protocol EPIDURAL .Q0M PRN Rx#: [id number] Sodium Chloride 0.9% 2, 2000 000 ml @ 999 mls/hr IV . Q2H1M ONE Rx#:[id number] Oral 125 Output: Urine 1300 2950 Uretheral (Hannon) 2950 Other: Voiding Method Indwelling Catheter Indwelling Catheter - Constitutional General appearance: Present: average body habitus - EENT Eyes: Present: normal appearance ENT: Present: normal oropharynx Ears: bilateral: normal - Neck Neck: Present: normal ROM - Respiratory Respiratory: bilateral: CTA - Cardiovascular Rhythm: regular Heart sounds: normal: S1, S2 - Gastrointestinal General gastrointestinal: Present: absent bowel sounds, soft, tenderness - Genitourinary Genitourinary Comment(s): Hannon catheter in place draining clear yellow urine - Neurologic Neurologic: Present: CNII-XII intact - Musculoskeletal Musculoskeletal: Present: gait normal - Psychiatric Psychiatric: Present: A&O x's 3, appropriate affect - Labs CBC & Chem 7: 06/08/17 06:35 06/08/17 06:35 Labs: Abnormal Lab Results - Last 24 Hours (Table) 06/07/17 06/07/17 06/08/17 Range/Units 18:12 23:51 05:11 Neutrophils # (1.3-7.7) k/uL Lymphocytes # (1.0-4.8) k/uL Sodium (137-145) mmol/L Chloride (98-107) mmol/L BUN (7-17) mg/dL Creatinine (0.52-1.04) mg/dL Glucose (74-99) mg/dL POC Glucose (mg/dL) 257 H 236 H 240 H (75-99) mg/dL Calcium (8.4-10.2) mg/dL 06/08/17 06/08/17 06/08/17 Range/Units 06:35 06:35 10:02 Neutrophils # 8.3 H (1.3-7.7) k/uL Lymphocytes # 0.6 L (1.0-4.8) k/uL Sodium 126 L (137-145) mmol/L Chloride 94 L (98-107) mmol/L BUN 3 L (7-17) mg/dL Creatinine 0.40 L (0.52-1.04) mg/dL Glucose 244 H (74-99) mg/dL POC Glucose (mg/dL) 202 H (75-99) mg/dL Calcium 8.3 L (8.4-10.2) mg/dL 06/08/17 Range/Units 11:05 Neutrophils # (1.3-7.7) k/uL Lymphocytes # (1.0-4.8) k/uL Sodium (137-145) mmol/L Chloride (98-107) mmol/L BUN (7-17) mg/dL Creatinine (0.52-1.04) mg/dL Glucose (74-99) mg/dL POC Glucose (mg/dL) 253 H (75-99) mg/dL Calcium (8.4-10.2) mg/dL Microbiology - Last 24 Hours (Table) 06/05/17 18:12 Blood Culture - Preliminary Blood No Growth after 48 hours 06/05/17 23:28 Urine Culture - Final Urine,Clean Catch Assessment and Plan Assessment: Right colonic mass status post right colectomy with partial omentectomy postoperative day 2 Migraine headache acute with nausea and vomiting Diabetes type 2 with hyperglycemia DJD Old granulomatosis disease Hiatal hernia Plan: Continue with antiemetics as needed as well as pain medication. Give subcutaneous dose of inotropic now and repeat in one to 2 hours if not successful to abort migraine. The patient's nausea and vomiting are secondary to her migraine and not necessarily associated with her recent surgery. Continue with other current medication including Accu-Cheks before meals and at bedtime and sliding scale coverage. We will change her IV fluid to normal saline due to hyperglycemia. Continue with IV fluid bolus for surgery. We will continue to monitor her closely.
--- NOTE | 2017-06-08 13:01 | P.PN ---
Subjective Progress Note Date: 06/08/17 The patient is a 51-year-old female status post right hemicolectomy by Dr. Bowling, postop day 2. She had severe headache this morning including migraine headache. Sodium was precipitously lowin less than 24 hours from 135- 126. After IV fluid hydration with normal saline including Decadron for nausea and Imitrex, patient is doing much better. Now she reports some swelling along the hand where IV boluses were given. No bowel movements. No passage of flatus. Objective - Vital Signs Vital signs: Vital Signs Temp 98.5 F 06/08/17 08:05 Pulse 86 06/08/17 08:05 Resp 16 06/08/17 08:05 BP 157/77 06/08/17 08:05 Pulse Ox 99 06/08/17 08:05 Intake & Output 06/07/17 06/08/17 06/08/17 18:59 06:59 18:59 Intake Total 231.15 2000 Output Total 1300 4150 Balance -1068.85 -2150 Weight 81.647 kg Intake: Intake, IV Titration 106.15 2000 Amount Bupivacaine (Pf) 0.5% 50 106.15 ml Hydromorphone (Pf) 5 mg In Sodium Chloride 0.9 % 200 ml @ Per Protocol EPIDURAL .Q0M PRN Rx#: [id number] Sodium Chloride 0.9% 2, 2000 000 ml @ 999 mls/hr IV . Q2H1M ONE Rx#:[id number] Oral 125 Output: Urine 1300 4150 Uretheral (Hannon) 4150 Other: Voiding Method Indwelling Catheter Indwelling Catheter - Exam GENERAL: Well developed and in no acute distress. Pleasant. HEENT: No sclera icterus. Extraocular movements grossly intact. Moist buccal mucosa. Head is atraumatic, normocephalic. Hears conversational speech. No nasal drainage. NECK: Supple without lymphadenopathy. No JV distention. CHEST: Non-labored respirations and equal bilateral excursions. CARDIOVASCULAR: Regular rate and rhythm. Palpable 2+ radial pulses. ABDOMEN: Soft, Nondistended. Dressings clean dry and intact MUSCULOSKELETAL: No clubbing, cyanosis or edema. NEUROLOGIC: No focal or lateralizing signs. PSYCH: Appropriate affect. Alert and oriented to person, place and time. SKIN: Good skin turgor. Well perfused. - Labs CBC & Chem 7: 06/08/17 06:35 06/08/17 06:35 Labs: Abnormal Lab Results - Last 24 Hours (Table) 06/07/17 06/07/17 06/08/17 Range/Units 18:12 23:51 05:11 Neutrophils # (1.3-7.7) k/uL Lymphocytes # (1.0-4.8) k/uL Sodium (137-145) mmol/L Chloride (98-107) mmol/L BUN (7-17) mg/dL Creatinine (0.52-1.04) mg/dL Glucose (74-99) mg/dL POC Glucose (mg/dL) 257 H 236 H 240 H (75-99) mg/dL Calcium (8.4-10.2) mg/dL 06/08/17 06/08/17 06/08/17 Range/Units 06:35 06:35 10:02 Neutrophils # 8.3 H (1.3-7.7) k/uL Lymphocytes # 0.6 L (1.0-4.8) k/uL Sodium 126 L (137-145) mmol/L Chloride 94 L (98-107) mmol/L BUN 3 L (7-17) mg/dL Creatinine 0.40 L (0.52-1.04) mg/dL Glucose 244 H (74-99) mg/dL POC Glucose (mg/dL) 202 H (75-99) mg/dL Calcium 8.3 L (8.4-10.2) mg/dL 06/08/17 Range/Units 11:05 Neutrophils # (1.3-7.7) k/uL Lymphocytes # (1.0-4.8) k/uL Sodium (137-145) mmol/L Chloride (98-107) mmol/L BUN (7-17) mg/dL Creatinine (0.52-1.04) mg/dL Glucose (74-99) mg/dL POC Glucose (mg/dL) 253 H (75-99) mg/dL Calcium (8.4-10.2) mg/dL Microbiology - Last 24 Hours (Table) 06/05/17 18:12 Blood Culture - Preliminary Blood No Growth after 48 hours 06/05/17 23:28 Urine Culture - Final Urine,Clean Catch Assessment and Plan (1) S/P right hemicolectomy Current Visit: Yes Status: Acute Code(s): Z90.49 - ACQUIRED ABSENCE OF OTHER SPECIFIED PARTS OF DIGESTIVE TRACT SNOMED Code(s): 637731158 (2) Obesity (BMI 30.0-34.9) Current Visit: Yes Status: Acute Code(s): E66.9 - OBESITY, UNSPECIFIED SNOMED Code(s): 295640544 (3) Scoliosis Current Visit: Yes Status: Acute Code(s): M41.9 - SCOLIOSIS, UNSPECIFIED SNOMED Code(s): 434073331 (4) Hyponatremia syndrome Current Visit: Yes Status: Acute Code(s): E87.1 - HYPO-OSMOLALITY AND HYPONATREMIA SNOMED Code(s): 5150908 Plan: 1. IV fluids adjusted to normal saline to address hyponatremia 2. IV fluids cutback as she has moderate urinary output 3. Recommend removal of epidural tomorrow with Hannon catheter
[2017-06-08] MEDS: SODIUM CHLORIDE 0.9% 1,000 ML IV SCH (13:17)
[2017-06-08 13:33] LABS: Glucose,Whole Blood 211 mg/dL (75-99)
[2017-06-08 17:08] LABS: Glucose,Whole Blood 176 mg/dL (75-99)
[2017-06-08] MEDS: traZODone HCL 50 MG TAB PO SCH (20:26)
[2017-06-08] MEDS: HYDROcodone/APAP 5-325MG 1 EACH TAB PO PRN (20:27)
[2017-06-08 21:03] LABS: Glucose,Whole Blood 98 mg/dL (75-99)
[2017-06-08] MEDS: LACTATED RINGERS 1,000 ML IV SCH ×2 (22:13)
[2017-06-09] MEDS: KETOROLAC 30 MG/ML 1 ML VIAL IVP SCH ×4 (00:07→18:04)
[2017-06-09] MEDS: PIPERACILLIN-TAZOBACTAM 3.375 GM in DEXTROSE/WATER 1 50ML.BAG IVPB SCH ×3 (00:07→15:33)
[2017-06-09] MEDS: SODIUM CHLORIDE 0.9% 1,000 ML IV SCH ×2 (00:09→15:37)
[2017-06-09 00:27] LABS: Glucose,Whole Blood 86 mg/dL (75-99)
[2017-06-09] MEDS: INSULIN ASPART 100 UNIT/ML 1 ML 10 ML VIAL SQ SCH ×5 (00:29→21:57)
[2017-06-09 06:55] LABS: Basophils % (A) 0 %; Eosinophils # (A) 0.3 k/uL (0-0.7); Eosinophils % (A) 4 %; HCT 30.4 % (34.0-46.0); HGB 10.2 gm/dL (11.4-16.0); Lymphocytes # (A) 1.6 k/uL (1.0-4.8); Lymphocytes % (A) 22 %; MCH 27.5 pg (25.0-35.0); MCHC 33.5 g/dL (31.0-37.0); MCV 82.1 fL (80.0-100.0); Mean Platelet Volume 7.1; Monocytes # (A) 0.5 k/uL (0-1.0); Monocytes % (A) 6 %; Neutrophils # (A) 4.8 k/uL (1.3-7.7); Neutrophils % (A) 65 %; Platelet Count 260 k/uL (150-450); RDW 12.9 % (11.5-15.5); WBC 7.4 k/uL (3.8-10.6)
[2017-06-09 07:06] LABS: Anion Gap 7 mmol/L; Blood Urea Nitrogen 7 mg/dL (7-17); Calcium 8.2 mg/dL (8.4-10.2); Carbon Dioxide 26 mmol/L (22-30); Chloride 110 mmol/L (98-107); Glucose 101 mg/dL (74-99); Potassium 3.7 mmol/L (3.5-5.1); Sodium 143 mmol/L (137-145)
[2017-06-09] MEDS: HYDROcodone/APAP 5-325MG 1 EACH TAB PO PRN ×3 (07:26→22:00)
[2017-06-09 07:46] LABS: Glucose,Whole Blood 102 mg/dL (75-99)
[2017-06-09] MEDS: glipiZIDE 10 MG TAB PO SCH (10:15)
[2017-06-09] MEDS: ALVIMOPAN 12 MG CAPSULE PO SCH ×2 (10:15→22:02)
[2017-06-09] MEDS: LINAGLIPTIN 5 MG TABLET PO SCH (10:15)
[2017-06-09] MEDS: PANTOPRAZOLE 40 MG TABLET PO SCH (10:15)
[2017-06-09] MEDS: buPROPion 75 MG TAB PO SCH (10:15)
[2017-06-09] MEDS: HEPARIN SODIUM,PORCINE 5,000 UNIT/ML 1 ML VIAL SQ SCH ×2 (10:16→22:02)
[2017-06-09] MEDS: INSULIN DETEMIR 100 UNIT/ML 10 ML VIAL SQ SCH (10:21)
--- NOTE | 2017-06-09 10:52 | P.PN ---
<TalhaRoberta M - Last Filed: 06/09/17 10:46> Subjective Progress Note Date: 06/09/17 51-year-old female seen and examined at bedside patient states the migraine headache has improved. Patient is tolerating a clear liquid diet. States the nausea vomiting improving less surgical abdominal pain. Patient states she's been up ambulating in the hallway. Status post June 06 right colectomy with partial omentectomy for a right colon mass Objective - Vital Signs Vital signs: Vital Signs Temp 98.6 F 06/09/17 03:15 Pulse 78 06/09/17 07:00 Resp 14 06/09/17 07:00 BP 145/77 06/09/17 07:00 Pulse Ox 97 06/09/17 07:00 Intake & Output 06/08/17 06/09/17 06/09/17 18:59 06:59 18:59 Intake Total 2436 Output Total 5150 125 Balance -2714 -125 Intake: Intake, IV Titration 2000 Amount Sodium Chloride 0.9% 2, 2000 000 ml @ 999 mls/hr IV . Q2H1M ONE Rx#:[id number] Oral 436 Output: Urine 5150 125 Uretheral (Hannon) 5150 Other: Voiding Method Indwelling Catheter Indwelling Catheter # Bowel Movements 3 - Exam Physical exam Pleasant 51-year-old female sitting up in bed states headache has significantly improved no nausea no vomiting Lungs adequate air movement bilaterally on room air Heart S1-S2 audible regular Abdomen surgical incision sites dry intact no redness nondistended nontender bowel tones present passing gas states had several bowel movements yesterday urinating no difficulty abdominal binder in place Extremities no edema - Labs CBC & Chem 7: 06/09/17 06:20 06/09/17 06:20 Labs: Abnormal Lab Results - Last 24 Hours (Table) 06/08/17 06/08/17 06/08/17 Range/Units 11:05 13:12 17:03 RBC (3.80-5.40) m/uL Hgb (11.4-16.0) gm/dL Hct (34.0-46.0) % Chloride (98-107) mmol/L Creatinine (0.52-1.04) mg/dL Glucose (74-99) mg/dL POC Glucose (mg/dL) 253 H 211 H 176 H (75-99) mg/dL Calcium (8.4-10.2) mg/dL 06/09/17 06/09/17 06/09/17 Range/Units 06:20 06:20 07:09 RBC 3.70 L (3.80-5.40) m/uL Hgb 10.2 L (11.4-16.0) gm/dL Hct 30.4 L (34.0-46.0) % Chloride 110 H (98-107) mmol/L Creatinine 0.50 L (0.52-1.04) mg/dL Glucose 101 H (74-99) mg/dL POC Glucose (mg/dL) 102 H (75-99) mg/dL Calcium 8.2 L (8.4-10.2) mg/dL Microbiology - Last 24 Hours (Table) 06/05/17 18:12 Blood Culture - Preliminary Blood No Growth after 72 hours Assessment and Plan Assessment: Impression Present on admission persistent right lower quadrant abdominal pain suspect due to diverticular abscess or necrotic tumor as indicated on a computed tomography scan abdomen and pelvis done on June 04 History migraine headaches Elevated C-reactive protein present on admission CAT scan abdomen and pelvis imagings indicate possible appendical tumor Type 2 diabetes insulin requiring Surgical history appendectomy and a hysterectomy Status post June 06 right colectomy partial omentectomy for a right colon mass Plan Advance diet to full liquid Increase activity Continue postop surgical care DVT and GI prophylaxis Pain control Follow up on path report pending note dictated for The above impression and plan of care have been discussed and directed by signing physician. Roberta Palencia nurse practitioner acting as scribe for signing physician. <Roxy Montalvo - Last Filed: 06/10/17 19:37> Objective - Vital Signs Vital signs: Vital Signs Temp 98.0 F 06/10/17 08:00 Pulse 80 06/10/17 08:00 Resp 16 06/10/17 08:00 BP 146/80 06/10/17 08:00 Pulse Ox 97 06/10/17 08:00 Intake & Output 06/10/17 06/10/17 06/11/17 06:59 18:59 06:59 Weight 81.647 kg Other: # Voids 1 1 - Labs CBC & Chem 7: 06/10/17 06:42 06/10/17 06:42 Labs: Abnormal Lab Results - Last 24 Hours (Table) 06/09/17 06/10/17 06/10/17 Range/Units 20:23 06:42 06:42 RBC 3.68 L (3.80-5.40) m/uL Hgb 9.8 L (11.4-16.0) gm/dL Hct 30.9 L (34.0-46.0) % Chloride 109 H (98-107) mmol/L BUN 4 L (7-17) mg/dL Creatinine 0.50 L (0.52-1.04) mg/dL POC Glucose (mg/dL) 156 H (75-99) mg/dL Calcium 8.0 L (8.4-10.2) mg/dL 06/10/17 Range/Units 11:54 RBC (3.80-5.40) m/uL Hgb (11.4-16.0) gm/dL Hct (34.0-46.0) % Chloride (98-107) mmol/L BUN (7-17) mg/dL Creatinine (0.52-1.04) mg/dL POC Glucose (mg/dL) 111 H (75-99) mg/dL Calcium (8.4-10.2) mg/dL Microbiology - Last 24 Hours (Table) 06/05/17 18:12 Blood Culture - Preliminary Blood No Growth after 96 hours Assessment and Plan (1) S/P right hemicolectomy Status: Acute Code(s): Z90.49 - ACQUIRED ABSENCE OF OTHER SPECIFIED PARTS OF DIGESTIVE TRACT SNOMED Code(s): 269248121 (2) Obesity (BMI 30.0-34.9) Status: Acute Code(s): E66.9 - OBESITY, UNSPECIFIED SNOMED Code(s): 061437180 (3) Scoliosis Status: Acute Code(s): M41.9 - SCOLIOSIS, UNSPECIFIED SNOMED Code(s): 497115454 (4) Hyponatremia syndrome Status: Acute Code(s): E87.1 - HYPO-OSMOLALITY AND HYPONATREMIA SNOMED Code( s): 9195005
[2017-06-09 11:45] LABS: Glucose,Whole Blood 146 mg/dL (75-99)
--- NOTE | 2017-06-09 14:56 | P.PN ---
Subjective 51-year-old female patient who was admitted to the hospital secondary to right-sided abdominal pain. She was found to have a colonic mass and underwent right colectomy as well as partial omentectomy. This is postoperative day 2. She has had some nausea and vomiting secondary to migraine. She has received Fioricet and other medication which has not been successful. We will give her dose of Imitrex this morning to try to abort the migraine. She states her abdomen feels well and if she did not have the migraine she would not have any nausea or vomiting. She is hemodynamically stable. Remains on IV fluids. Afebrile. 06/09/2017 Patient did move her bowel patient is feeling much better advancing the diet still has some pain in the abdomen. Constitutional: Denied any fatigue denied any fever. Cardio vascular: denied any chest pain, palpitations Gastrointestinal as mentioned in HPI Pulmonary: Denied any shortness of breath cough Neurologic denied any new focal deficits Objective - Vital Signs Vital signs: Vital Signs Temp 98.6 F 06/09/17 03:15 Pulse 78 06/09/17 07:00 Resp 14 06/09/17 07:00 BP 145/77 06/09/17 07:00 Pulse Ox 97 06/09/17 07:00 Intake & Output 06/08/17 06/09/17 06/09/17 18:59 06:59 18:59 Intake Total 2436 Output Total 5150 125 Balance -2714 -125 Intake: Intake, IV Titration 2000 Amount Sodium Chloride 0.9% 2, 2000 000 ml @ 999 mls/hr IV . Q2H1M ONE Rx#:[id number] Oral 436 Output: Urine 5150 125 Uretheral (Hannon) 5150 Other: Voiding Method Indwelling Catheter Indwelling Catheter # Bowel Movements 3 - Exam PHYSICAL EXAMINATION: GENERAL: The patient is alert and oriented x3, not in any acute distress. Well developed, well nourished. HEENT: Pupils are round and equally reacting to light. EOMI. No scleral icterus. No conjunctival pallor. Normocephalic, atraumatic. No pharyngeal erythema. No thyromegaly. CARDIOVASCULAR: S1 and S2 present. No murmurs, rubs, or gallops. PULMONARY: Chest is clear to auscultation, no wheezing or crackles. ABDOMEN: Soft, abdominal binder in place does have good bowel sounds and patient has surgical drain in place MUSCULOSKELETAL: No joint swelling or deformity. EXTREMITIES: No cyanosis, clubbing, or pedal edema. NEUROLOGICAL: Gross neurological examination did not reveal any focal deficits. SKIN: No rashes. - Labs CBC & Chem 7: 06/09/17 06:20 06/09/17 06:20 Labs: Abnormal Lab Results - Last 24 Hours (Table) 06/08/17 06/09/17 06/09/17 Range/Units 17:03 06:20 06:20 RBC 3.70 L (3.80-5.40) m/uL Hgb 10.2 L (11.4-16.0) gm/dL Hct 30.4 L (34.0-46.0) % Chloride 110 H (98-107) mmol/L Creatinine 0.50 L (0.52-1.04) mg/dL Glucose 101 H (74-99) mg/dL POC Glucose (mg/dL) 176 H (75-99) mg/dL Calcium 8.2 L (8.4-10.2) mg/dL 06/09/17 06/09/17 Range/Units 07:09 11:44 RBC (3.80-5.40) m/uL Hgb (11.4-16.0) gm/dL Hct (34.0-46.0) % Chloride (98-107) mmol/L Creatinine (0.52-1.04) mg/dL Glucose (74-99) mg/dL POC Glucose (mg/dL) 102 H 146 H (75-99) mg/dL Calcium (8.4-10.2) mg/dL Microbiology - Last 24 Hours (Table) 06/05/17 18:12 Blood Culture - Preliminary Blood No Growth after 72 hours Assessment and Plan Plan: Right colonic mass status post right colectomy with partial omentectomy postoperative day 2 Migraine headache acute with nausea and vomiting Diabetes type 2 with hyperglycemia DJD Old granulomatosis disease Hiatal hernia plan: Continue with present medications continue local wound care possibly of discharge tomorrow. Advance her diet
[2017-06-09 17:28] LABS: Glucose,Whole Blood 176 mg/dL (75-99)
[2017-06-09] MEDS: LACTATED RINGERS 1,000 ML IV SCH (18:08)
[2017-06-09 20:37] LABS: Glucose,Whole Blood 156 mg/dL (75-99)
[2017-06-09 21:45] VITALS: RESP 16
[2017-06-09] MEDS: traZODone HCL 50 MG TAB PO SCH (22:02)
[2017-06-10] MEDS: KETOROLAC 30 MG/ML 1 ML VIAL IVP SCH ×3 (00:13→13:28)
[2017-06-10] MEDS: PIPERACILLIN-TAZOBACTAM 3.375 GM in DEXTROSE/WATER 1 50ML.BAG IVPB SCH ×2 (00:14→09:07)
[2017-06-10] MEDS: SODIUM CHLORIDE 0.9% 1,000 ML IV SCH (04:48)
[2017-06-10] MEDS: HYDROcodone/APAP 5-325MG 1 EACH TAB PO PRN (04:48)
[2017-06-10 06:59] LABS: Glucose,Whole Blood 87 mg/dL (75-99)
[2017-06-10 07:10] LABS: Basophils % (A) 1 %; Eosinophils # (A) 0.4 k/uL (0-0.7); Eosinophils % (A) 7 %; HCT 30.9 % (34.0-46.0); HGB 9.8 gm/dL (11.4-16.0); Lymphocytes # (A) 1.4 k/uL (1.0-4.8); Lymphocytes % (A) 25 %; MCH 26.7 pg (25.0-35.0); MCHC 31.7 g/dL (31.0-37.0); Mean Platelet Volume 6.8; Monocytes # (A) 0.4 k/uL (0-1.0); Monocytes % (A) 6 %; Neutrophils # (A) 3.3 k/uL (1.3-7.7); Neutrophils % (A) 59 %; Platelet Count 302 k/uL (150-450); RBC 3.68 m/uL (3.80-5.40); RDW 13.4 % (11.5-15.5); WBC 5.5 k/uL (3.8-10.6)
[2017-06-10 07:16] LABS: Anion Gap 6 mmol/L; Blood Urea Nitrogen 4 mg/dL (7-17); Carbon Dioxide 28 mmol/L (22-30); Chloride 109 mmol/L (98-107); Glucose 92 mg/dL (74-99); Potassium 3.9 mmol/L (3.5-5.1); Sodium 143 mmol/L (137-145)
[2017-06-10] MEDS: INSULIN ASPART 100 UNIT/ML 1 ML 10 ML VIAL SQ SCH ×2 (07:35→13:20)
[2017-06-10] MEDS: glipiZIDE 10 MG TAB PO SCH (07:37)
[2017-06-10] MEDS: HEPARIN SODIUM,PORCINE 5,000 UNIT/ML 1 ML VIAL SQ SCH (07:47)
[2017-06-10] MEDS: PANTOPRAZOLE 40 MG TABLET PO SCH (07:47)
[2017-06-10] MEDS: ALVIMOPAN 12 MG CAPSULE PO SCH (07:47)
[2017-06-10] MEDS: LINAGLIPTIN 5 MG TABLET PO SCH (07:48)
[2017-06-10] MEDS: buPROPion 75 MG TAB PO SCH (07:48)
[2017-06-10 08:13] VITALS: BP 146/80; PULSE 80; TEMP 98
[2017-06-10] MEDS: INSULIN DETEMIR 100 UNIT/ML 10 ML VIAL SQ SCH (09:07)
--- NOTE | 2017-06-10 10:54 | P.DS ---
<Roberta Palencia - Last Filed: 06/10/17 10:42> Providers Date of admission: 06/06/17 08:33 Expected date of discharge: 06/10/17 Attending physician: Anthony Jacobs Consults: 06/04/17 19:30 Consult Physician Stat Consulting Provider: Stefano Aguilar Consult Reason/Comments: abdominal mass Do you want consulting provider notified?: Yes Primary care physician: [facility] Course: 51-year-old female was admitted to the hospital for persistent onset several weeks right-sided abdominal pain. Patient stated the pain had been progressively more symptomatic felt nauseated and vomited. The pain did not radiate. Nothing seemed to make it better or worse. No blood in stool. CAT scan obtained in the outpatient setting of the abdomen and pelvis did show a large cystic mass of low density in the anterior aspect of the proximal ascending colon.. Patient underwent right colectomy as well as a partial omentectomy. A provera wound system was placed Procedure was done June 06 Postop patient did develop a migraine headache. At the time of discharge this had resolved. The day of discharge the pathology report was still pending. Blood and urine cultures were negative On the day of discharge patient was hemodynamically stable tolerating a diet up ambulating surgical incision site dry afebrile felt to be appropriate to proceed with a discharge Impression Present on admission persistent right lower quadrant abdominal pain suspect due to diverticular abscess or necrotic tumor as indicated on a computed tomography scan abdomen and pelvis done on June 04 History migraine headaches Elevated C-reactive protein present on admission CAT scan abdomen and pelvis imagings indicate possible appendical tumor Type 2 diabetes insulin requiring Surgical history appendectomy and a hysterectomy Status post June 06 right colectomy partial omentectomy for a right colon mass Discharge summary dictated for Dr. Katia rodriguez on behalf of dr aguilar The above impression and plan of care have been discussed and directed by signing physician. Roberta Palencia nurse practitioner acting as scribe for signing physician. Patient Condition at Discharge: Fair Plan - Discharge Summary Discharge Rx Participant: Yes New Discharge Prescriptions: New Acetaminophen Tab [Tylenol] 650 mg PO Q6HR PRN tab PRN Reason: Fever And/ Or Pain HYDROcodone/APAP 5-325MG [[place] 5-325] 1 each PO Q6HR PRN #15 tab PRN Reason: Pain Continue traZODone HCL 50 mg PO HS RABEprazole SODIUM [Aciphex] 20 mg PO DAILY sitaGLIPtin [Januvia] 100 mg PO DAILY glipiZIDE [Glucotrol] 10 mg PO DAILY buPROPion [Wellbutrin] 75 mg PO DAILY Insulin Glargine,Hum.rec.anlog [Lantus Solostar] 18 unit SQ DAILY Ibuprofen [Motrin] 800 mg PO TID PRN PRN Reason: Pain Discharge Medication List Ibuprofen [Motrin] 800 mg PO TID PRN 06/04/17 [History] Insulin Glargine,Hum.rec.anlog [Lantus Solostar] 18 unit SQ DAILY 06/04/17 [ History] RABEprazole SODIUM [Aciphex] 20 mg PO DAILY 06/04/17 [History] buPROPion [Wellbutrin] 75 mg PO DAILY 06/04/17 [History] glipiZIDE [Glucotrol] 10 mg PO DAILY 06/04/17 [History] sitaGLIPtin [Januvia] 100 mg PO DAILY 06/04/17 [History] traZODone HCL 50 mg PO HS 06/04/17 [History] Acetaminophen Tab [Tylenol] 650 mg PO Q6HR PRN tab 06/10/17 [Rx] HYDROcodone/APAP 5-325MG [[place] 5-325] 1 each PO Q6HR PRN #15 tab 06/10/17 [Rx] Follow up Appointment(s)/Referral(s): Kunal Man DO [Primary Care Provider] - 06/12/17 3:20 pm (Appointment set with [facility]) Stefano Aguilar MD [STAFF PHYSICIAN] - 06/17/17 3:15 pm Patient Instructions/Handouts: Colectomy (DC), Negative Pressure Wound Therapy (DC), Colectomy Diet (GEN) Activity/Diet/Wound Care/Special Instructions: No tub bath for six weeks. Shower daily. No lifting over 10 pounds for the next 6 weeks. Avoid constipation may use [id number] stool softener if needed May use ice packs to surgical site. No driving while taking narcotic for pain. Leave plastic dressings in place do not remove Leave prevera wound system in place will be removed and a follow-up visit with Dr. aguilar Wear abdominal binder when up ambulating Discharge Disposition: HOME SELF-CARE <Roxy Montalvo N - Last Filed: 06/10/17 19:38> - Discharge Diagnosis(es) (1) S/P right hemicolectomy Status: Acute (2) Obesity (BMI 30.0-34.9) Status: Acute (3) Scoliosis Status: Acute (4) Hyponatremia syndrome Status: Acute
[2017-06-10 12:15] LABS: Glucose,Whole Blood 111 mg/dL (75-99)
--- NOTE | 2017-06-10 12:34 | P.PN ---
Subjective 51-year-old female patient who was admitted to the hospital secondary to right-sided abdominal pain. She was found to have a colonic mass and underwent right colectomy as well as partial omentectomy. This is postoperative day 2. She has had some nausea and vomiting secondary to migraine. She has received Fioricet and other medication which has not been successful. We will give her dose of Imitrex this morning to try to abort the migraine. She states her abdomen feels well and if she did not have the migraine she would not have any nausea or vomiting. She is hemodynamically stable. Remains on IV fluids. Afebrile. 06/09/2017 Patient did move her bowel patient is feeling much better advancing the diet still has some pain in the abdomen. 06/11/17 Patient is still having pain in the right upper quadrant although he did have bowel movements is feeling well and patient still has a drain in place will follow with surgeon as an outpatient and patient is being discharged today. Constitutional: Denied any fatigue denied any fever. Cardio vascular: denied any chest pain, palpitations Gastrointestinal as mentioned in HPI Pulmonary: Denied any shortness of breath cough Neurologic denied any new focal deficits Objective - Vital Signs Vital signs: Vital Signs Temp 98.0 F 06/10/17 08:00 Pulse 80 06/10/17 08:00 Resp 16 06/10/17 08:00 BP 146/80 06/10/17 08:00 Pulse Ox 97 06/10/17 08:00 Intake & Output 06/09/17 06/10/17 06/10/17 18:59 06:59 18:59 Output Total 125 Balance -125 Weight 81.647 kg Output: Urine 125 Other: # Voids 1 1 # Bowel Movements 3 - Exam PHYSICAL EXAMINATION: GENERAL: The patient is alert and oriented x3, not in any acute distress. Well developed, well nourished. HEENT: Pupils are round and equally reacting to light. EOMI. No scleral icterus. No conjunctival pallor. Normocephalic, atraumatic. No pharyngeal erythema. No thyromegaly. CARDIOVASCULAR: S1 and S2 present. No murmurs, rubs, or gallops. PULMONARY: Chest is clear to auscultation, no wheezing or crackles. ABDOMEN: Soft, abdominal binder in place does have good bowel sounds and patient has surgical drain in place MUSCULOSKELETAL: No joint swelling or deformity. EXTREMITIES: No cyanosis, clubbing, or pedal edema. NEUROLOGICAL: Gross neurological examination did not reveal any focal deficits. SKIN: No rashes. - Labs CBC & Chem 7: 06/10/17 06:42 06/10/17 06:42 Labs: Abnormal Lab Results - Last 24 Hours (Table) 06/09/17 06/09/17 06/10/17 Range/Units 17:25 20:23 06:42 RBC 3.68 L (3.80-5.40) m/uL Hgb 9.8 L (11.4-16.0) gm/dL Hct 30.9 L (34.0-46.0) % Chloride (98-107) mmol/L BUN (7-17) mg/dL Creatinine (0.52-1.04) mg/dL POC Glucose (mg/dL) 176 H 156 H (75-99) mg/dL Calcium (8.4-10.2) mg/dL 06/10/17 06/10/17 Range/Units 06:42 11:54 RBC (3.80-5.40) m/uL Hgb (11.4-16.0) gm/dL Hct (34.0-46.0) % Chloride 109 H (98-107) mmol/L BUN 4 L (7-17) mg/dL Creatinine 0.50 L (0.52-1.04) mg/dL POC Glucose (mg/dL) 111 H (75-99) mg/dL Calcium 8.0 L (8.4-10.2) mg/dL Microbiology - Last 24 Hours (Table) 06/05/17 18:12 Blood Culture - Preliminary Blood No Growth after 96 hours Assessment and Plan Plan: Right colonic mass status post right colectomy with partial omentectomy postoperative day 2 Migraine headache acute with nausea and vomiting Diabetes type 2 with hyperglycemia DJD Old granulomatosis disease Hiatal hernia plan: She is medically stable to be discharged today.
--- NOTE | 2017-06-12 11:25 | CDI ---
Last Revision, February 2017 Documentation Clarification Form Date: 06/12/17 From: Treva Andrew Amarilis Wells, User Interface Artist between 8:30 am & 5 pm Nick Admit Date: 06/06/2017 8:33:00 AM Patient Name: Deepti Rausch Visit Number: [id number] Discharge Date: 06/10/17 ATTENTION: The Clinical Documentation Specialists (CDI) and [facility] Coding Staff appreciate your assistance in clarifying documentation. Please respond to the clarification below the line at the bottom and electronically sign. The CDI & [facility] Coding staff will review the response and follow-up if needed. Please note: Queries are made part of the Legal Health Record. If you have any questions, please contact the author of this message via ITS. Dr. Anthony Jacobs The final diagnosis of the pathology report states: Colon, Right Hemicolectomy: Malignant Spindle Cell Neoplasm. Treatment: Right colectomy and partial omentectomy In your professional opinion, do you agree with the pathology report specifying malignant spindle cell neoplasm as cause of right colon mass? 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 Include clinical findings that support your diagnosis. MTDD
--- NOTE | 2017-06-20 07:50 | CDI ---
Last Revision, February 2017 Documentation Clarification Form Date: 06/20/17 From: Treva Morales Amarilis Wells, Entry Level Project Coordinator between 8:30 am & 5 pm Nick Admit Date: 06/06/2017 8:33:00 AM Patient Name: Deepti Rausch Visit Number: [id number] Discharge Date: 06/10/17 ATTENTION: The Clinical Documentation Specialists (CDI) and [facility] Coding Staff appreciate your assistance in clarifying documentation. Please respond to the clarification below the line at the bottom and electronically sign. The CDI & [facility] Coding staff will review the response and follow-up if needed. Please note: Queries are made part of the Legal Health Record. If you have any questions, please contact the author of this message via ITS. Dr. Roxy Montalvo The final diagnosis of the pathology report states: Colon, Right Hemicolectomy: Malignant Spindle Cell Neoplasm. Treatment: Right colectomy and partial omentectomy In your professional opinion, do you agree with the pathology report specifying malignant spindle cell neoplasm as cause of right colon mass? 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 Include clinical findings that support your diagnosis. Unable to determine...[please send query to operating surgeon, Dr. Bowling] Please forward inquiry to Dr. Bowling, 07/09/17 SANTOS
--- NOTE | 2017-06-24 14:15 | CDI ---
Last Revision, February 2017 Documentation Clarification Form Date: 06/24/17 From: Treva Morales Amarilis Wells, Coil Finisher between 8:30 am & 5 pm Nick Admit Date: 06/06/2017 8:33:00 AM Patient Name: Deepti Rausch Visit Number: [id number] Discharge Date: 06/10/17 ATTENTION: The Clinical Documentation Specialists (CDI) and [facility] Coding Staff appreciate your assistance in clarifying documentation. Please respond to the clarification below the line at the bottom and electronically sign. The CDI & [facility] Coding staff will review the response and follow-up if needed. Please note: Queries are made part of the Legal Health Record. If you have any questions, please contact the author of this message via ITS. Dr. Roxy Montalvo The final diagnosis of the pathology report states: Colon, Right Hemicolectomy: Malignant Spindle Cell Neoplasm. Treatment: Right colectomy and partial omentectomy In your professional opinion, do you agree with the pathology report specifying malignant spindle cell neoplasm as cause of right colon mass? 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 Include clinical findings that support your diagnosis. Unable to determine...[please send query to operating surgeon, Dr. Bowling] SANTOS
--- NOTE | 2017-07-02 07:09 | CDI ---
Last Revision, February 2017 Documentation Clarification Form Date: 07/02/17 From: Treva Morales Phone: Admit Date: 06/06/2017 8:33:00 AM Patient Name: Deepti Rausch Visit Number: [id number] Discharge Date: 06/10/17 ATTENTION: The Clinical Documentation Specialists (CDI) and [facility] Coding Staff appreciate your assistance in clarifying documentation. Please respond to the clarification below the line at the bottom and electronically sign. The CDI & [facility] Coding staff will review the response and follow-up if needed. Please note: Queries are made part of the Legal Health Record. If you have any questions, please contact the author of this message via ITS. Dr. Stefano Bowling The final diagnosis of the pathology report states: Colon, Right Hemicolectomy: Malignant Spindle Cell Neoplasm. Treatment: Right colectomy and partial omentectomy In your professional opinion, do you agree with the pathology report specifying malignant spindle cell neoplasm as cause of right colon mass? 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 Include clinical findings that support your diagnosis. 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 MTDD
== END 2017-06-10 15:16 | disposition home or self-care (01) | DRG 330 ==
LOC: EC 18:53 → 3SUR 21:28 → OBSVTOIN 06-06 08:33
PROVIDERS: ADMIT Internal Medicine; ATTEND Internal Medicine
PROC: 0DBU0ZZ Excision of Omentum, Open Approach (ICD-10-PCS; 2017-06-06)
PROC: 0DTF0ZZ Resection of Right Large Intestine, Open Approach (ICD-10-PCS; principal; 2017-06-06 10:55)
DX: C18.9 Malignant neoplasm of colon, unspecified (principal); E87.1 Hypo-osmolality and hyponatremia; D71 Functional disorders of polymorphonuclear neutrophils; E11.65 Type 2 diabetes mellitus with hyperglycemia; M41.9 Scoliosis, unspecified; K63.9 Disease of intestine, unspecified; G43.909 Migraine, unspecified, not intractable, without status migrainosus; F39 Unspecified mood [affective] disorder; K44.9 Diaphragmatic hernia without obstruction or gangrene; E66.9 Obesity, unspecified; Z68.30 Body mass index [BMI] 30.0-30.9, adult; M19.91 Primary osteoarthritis, unspecified site; R79.82 Elevated C-reactive protein (CRP); Z79.4 Long term (current) use of insulin; Z79.899 Other long term (current) drug therapy; Z87.891 Personal history of nicotine dependence; Z90.710 Acquired absence of both cervix and uterus; Z90.49 Acquired absence of other specified parts of digestive tract; Z88.5 Allergy status to narcotic agent; Z82.49 Family history of ischemic heart disease and other diseases of the circulatory system; Z83.3 Family history of diabetes mellitus
CPT/HCPCS: 36415; 80048; 80053; 81003; 82150; 83036; 83690; 85025; 85610; 85652; 85730; 86140; 87040; 87086; 88309; 88341; 88342; 94760; 96374; 99285

== ENCOUNTER → 2017-06-04 | Outpatient (CLI) | payer OTHER ==
[2017-06-04 16:16] LABS: Blood Urea Nitrogen 13 mg/dL (7-17)
--- NOTE | 2017-06-04 18:17 | CT ---
EXAMINATION TYPE: CT abdomen pelvis w con DATE OF EXAM: 06/04/2017 COMPARISON: 04/26/2011 HISTORY: Right lower quadrant pain. CT DLP: 1033.4 mGycm Automated exposure control for dose reduction was used. TECHNIQUE: Helical acquisition of images was performed from the lung bases through the pelvis. CONTRAST: Performed with Oral Contrast and with IV Contrast, patient injected with 100 mL of Isovue M300. FINDINGS: There is mild linear density at the left posterior lung base. There is no pleural effusion. There are small calcified splenic granulomata. There is a small hiatal hernia. Bile ducts are not dilated. Liver shows no focal defect. There is no pancreatic mass. Gallbladder han ears normal. There is no adrenal mass. Kidneys show satisfactory contrast opacification. There is no hydronephrosi s. There is no retroperitoneal adenopathy. There is no ascites. The cecum extends into the pelvis is contact with the urinary bladder. There is a 5.5 cm rounded cystic mass anterior to the proximal ascending colon. This could be within the wall of the colon. Appendix is not seen. Bladder distends smoothly. There is no free fluid in the pelvis. There is no evidence of a bowel obst ruction. There is no evidence of a hernia. I see no bony destructive process. Lumbar spine appears in tact. IMPRESSION: THERE IS A LARGE CYSTIC MASS OR LOW DENSITY MASS INVOLVING THE ANTERIOR ASPECT OF THE PROXIMAL ASCEND ING COLON. I WOULD CONSIDER POSSIBILITIES OF A DIVERTICULAR ABSCESS, NECROTIC TUMOR. FOLLOW-UP IS REC OMMENDED. CONSIDER ALSO TUMOR OF THE APPENDIX. OLD GRANULOMATOUS DISEASE. SMALL HIATAL HERNIA.
== END | disposition home or self-care (01) ==
LOC: RADCTMAIN 15:28
PROVIDERS: ATTEND Family Medicine
DX: R10.30 Lower abdominal pain, unspecified (principal); R19.07 Generalized intra-abdominal and pelvic swelling, mass and lump
CPT/HCPCS: 82565; 84520; 74177; 36415; Q9967

== ENCOUNTER → 2017-06-28 | Outpatient (CLI) | payer OTHER | END | disposition home or self-care (01) | LOC: RADPETMAIN 09:55 | PROVIDERS: ATTEND Surgery | DX: Z53.9 Procedure and treatment not carried out, unspecified reason (principal) ==

== ENCOUNTER 2017-07-01 11:19 | Inpatient (IN) | payer OTHER ==
[2017-07-01] MEDS ORDERED: ONDANSETRON 4 MG/2 ML VIAL IVP STA ×2 (11:35→14:15)
[2017-07-01] MEDS ORDERED: SODIUM CHLORIDE 0.9% 1,000 ML IV STA (11:35)
[2017-07-01] MEDS ORDERED: KETOROLAC 30 MG/ML 1 ML VIAL IVP STA (11:35)
[2017-07-01] MEDS ORDERED: RX INFO: IV CONTRAST WAS GIVEN 1 EACH MISC MISCELLANE PRN (11:57)
[2017-07-01 12:13] LABS: Basophils % (A) 0 %; Eosinophils # (A) 0.6 k/uL (0-0.7); Eosinophils % (A) 9 %; Lymphocytes # (A) 1.2 k/uL (1.0-4.8); Lymphocytes % (A) 18 %; MCH 27.4 pg (25.0-35.0); MCHC 34.3 g/dL (31.0-37.0); MCV 79.8 fL (80.0-100.0); Mean Platelet Volume 7.8; Monocytes # (A) 0.6 k/uL (0-1.0); Monocytes % (A) 8 %; Neutrophils # (A) 4.4 k/uL (1.3-7.7); Neutrophils % (A) 63 %; Platelet Count 286 k/uL (150-450); RBC 5.13 m/uL (3.80-5.40); RDW 13.1 % (11.5-15.5); WBC 6.9 k/uL (3.8-10.6)
--- NOTE | 2017-07-01 12:13 | ED ---
Abdominal Pain HPI <Manuel Pierce - Last Filed: 07/01/17 14:27> - General Source: patient, RN notes reviewed Mode of arrival: wheelchair Limitations: no limitations <Kunal Alvares - Last Filed: 07/01/17 14:30> - General Chief Complaint: Abdominal Pain Stated Complaint: bowel obstruction-sent by Dr. Henry Seen by Provider: 07/01/17 11:26 - History of Present Illness Initial Comments: This is a 51-year-old female presents emergency Department from PCPs office for concerns of bowel obstruction. Patient states that she had surgery [address] Bowling in which she had colon resection secondary to colon mass which was found to be cancerous. She states her last 5 days she's had increasing abdominal distention, pain and nausea. She's had no vomiting episodes. She did have 2 small only liquid stools last 24 hours. She denies any melena. Patient denies fever, chills, chest pain or shortness of breath. Patient had x- rays morning which showed's concerns of ileus versus obstruction. She denies any dysuria or hematuria. Patient states that her PCP contacted surgeon was advised to go to the ER. (Kunal Alvares) - Related Data Home Medications Medication Instructions Recorded Confirmed Ibuprofen [Motrin] 800 mg PO TID PRN 06/04/17 07/01/17 Insulin Glargine,Hum.rec.anlog 18 unit SQ DAILY 06/04/17 07/01/17 [Lantus Solostar] RABEprazole SODIUM [Aciphex] 20 mg PO DAILY 06/04/17 07/01/17 buPROPion [Wellbutrin] 75 mg PO DAILY 06/04/17 07/01/17 glipiZIDE [Glucotrol] 10 mg PO DAILY PRN 06/04/17 07/01/17 sitaGLIPtin [Januvia] 100 mg PO DAILY 06/04/17 07/01/17 traZODone HCL 50 mg PO HS 06/04/17 07/01/17 Docusate [Colace] 100 mg PO BID PRN 07/01/17 07/01/17 Magnesium Hydroxide [Milk of 2,400 mg PO ONCE PRN 07/01/17 07/01/17 Magnesia] Previous Rx's Medication Instructions Recorded Acetaminophen Tab [Tylenol] 650 mg PO Q6HR PRN tab 06/10/17 Allergies Allergy/AdvReac Type Severity Reaction Status Date / Time morphine AdvReac Hallucinati Verified 07/01/17 11:53 ons Review of Systems ROS Other: All systems not noted in ROS Statement are negative. <Manuel Pierce - Last Filed: 07/01/17 14:27> ROS Other: All systems not noted in ROS Statement are negative. <Kunal Alvares - Last Filed: 07/01/17 14:30> ROS Statement: Those systems with pertinent positive or pertinent negative responses have been documented in the HPI. Past Medical History Past Medical History: Diabetes Mellitus Additional Past Medical History / Comment(s): migraines History of Any Multi-Drug Resistant Organisms: None Reported Past Surgical History: Appendectomy, Section, Hysterectomy, Orthopedic Surgery, Tubal Ligation Additional Past Surgical History / Comment(s): eye surgery(on muscles) , lt knee arthrosocpy x2, rt shoulder rotator cuff, lt shoulder bone spur/arthritis Past Anesthesia/Blood Transfusion Reactions: No Reported Reaction Past Psychological History: No Psychological Hx Reported Smoking Status: Former smoker Past Alcohol Use History: None Reported Past Drug Use History: None Reported - Past Family History Father Family Medical History: Hypertension Mother Family Medical History: Diabetes Mellitus, Hypertension, Myocardial Infarction ( [place]) Additional Family Medical History / Comment(s): mi x3 <Kunal Alvares - Last Filed: 07/01/17 14:30> General Exam Limitations: no limitations General appearance: alert, in no apparent distress Head exam: Present: atraumatic, normocephalic, normal inspection Eye exam: Present: normal appearance, PERRL, EOMI. Absent: scleral icterus, conjunctival injection, periorbital swelling Respiratory exam: Present: normal lung sounds bilaterally. Absent: respiratory distress, wheezes, rales, rhonchi, stridor Cardiovascular Exam: Present: regular rate, normal rhythm, normal heart sounds. Absent: systolic murmur, diastolic murmur, rubs, gallop, clicks GI/Abdominal exam: Present: soft, distended, tenderness, normal bowel sounds. Absent: guarding, rebound, rigid Back exam: Absent: CVA tenderness (R), CVA tenderness (L) Skin exam: Present: warm, dry, intact, normal color. Absent: rash <Kunal Alvares - Last Filed: 07/01/17 14:30> Course <Manuel Pierce - Last Filed: 07/01/17 14:27> <Kunal Alvares - Last Filed: 07/01/17 14:30> Vital Signs 07/01/17 07/01/17 11:21 13:08 Temperature 98.6 F 98.3 F Pulse Rate 103 H 99 Respiratory 20 20 Rate Blood Pressure 134/72 144/73 O2 Sat by Pulse 98 99 Oximetry - Reevaluation(s) Reevaluation #1: 07/01/17 14:16 Patient reevaluated by myself, Dr. Pierce. Patient resting upright in bed feeling nauseous. Abdomen is soft and minimally distended. There is moderate tenderness in the epigastric region with mild to moderate diffuse tenderness. Hyperactive bowel sounds. Dr. Leyva has been paged. Patient updated. CT results that shows prior resection, component of ileus. Partial mid small bowel obstruction not excluded. Scattered small amount of ascites. 07/01/17 14:27 Case was discussed in detail with Dr. Bowling, who will admit his patient ( Manuel Pierce) Medical Decision Making - Lab Data Result diagrams: 07/01/17 11:50 07/01/17 11:50 <Manuel Pierce - Last Filed: 07/01/17 14:27> - Lab Data Result diagrams: 07/01/17 11:50 07/01/17 11:50 <Kunal Alvares - Last Filed: 07/01/17 14:30> - Medical Decision Making 51-year-old female presented for possible obstruction. CT shows ileus felt most likely to be obstruction though cannot be completely ruled out. Case discussed with Dr. Bowling patient will be admitted for IV hydration and further evaluation (Kunal Alvares) - Lab Data Lab Results 07/01/17 07/01/17 07/01/17 Range/Units 11:50 11:50 11:50 WBC 6.9 (3.8-10.6) k/uL RBC 5.13 (3.80-5.40) m/uL Hgb 14.1 D (11.4-16.0) gm/dL Hct 41.0 (34.0-46.0) % MCV 79.8 L (80.0-100.0) fL MCH 27.4 (25.0-35.0) pg MCHC 34.3 (31.0-37.0) g/dL RDW 13.1 (11.5-15.5) % Plt Count 286 (150-450) k/uL Neutrophils % 63 % Lymphocytes % 18 % Monocytes % 8 % Eosinophils % 9 % Basophils % 0 % Neutrophils # 4.4 (1.3-7.7) k/uL Lymphocytes # 1.2 (1.0-4.8) k/uL Monocytes # 0.6 (0-1.0) k/uL Eosinophils # 0.6 (0-0.7) k/uL Basophils # 0.0 (0-0.2) k/uL Manual Slide Review Performed RBC Morphology Normal PT (9.0-12.0) sec INR (<1.2) APTT (22.0-30.0) sec Sodium 139 (137-145) mmol/L Potassium 4.5 (3.5-5.1) mmol/L Chloride 99 (98-107) mmol/L Carbon Dioxide 24 (22-30) mmol/L Anion Gap 16 mmol/L BUN 13 (7-17) mg/dL Creatinine 0.42 L (0.52-1.04) mg/dL Est GFR (CKD-EPI)AfAm >90 (>60 ml/min/1.73 sqM) Est GFR (CKD-EPI)NonAf >90 (>60 ml/min/1.73 sqM) Glucose 193 H (74-99) mg/dL Plasma Lactic Acid Luis 1.2 (0.7-2.0) mmol/L Calcium 9.3 (8.4-10.2) mg/dL Total Bilirubin 0.7 (0.2-1.3) mg/dL AST 17 (14-36) U/L ALT 23 (9-52) U/L Alkaline Phosphatase 84 (38-126) U/L Total Protein 6.4 (6.3-8.2) g/dL Albumin 3.8 (3.5-5.0) g/dL Amylase 33 (30-110) U/L Lipase 48 (23-300) U/L Urine Color Urine Appearance (Clear) Urine pH (5.0-8.0) Ur Specific [place] (1.001-1.035) Urine Protein (Negative) Urine Glucose (UA) (Negative) Urine Blood (Negative) Urine Nitrite (Negative) Urine Bilirubin (Negative) Urine Urobilinogen (<2.0) mg/dL Ur Leukocyte Esterase (Negative) 07/01/17 07/01/17 Range/Units 12:50 13:50 WBC (3.8-10.6) k/uL RBC (3.80-5.40) m/uL Hgb (11.4-16.0) gm/dL Hct (34.0-46.0) % MCV (80.0-100.0) fL MCH (25.0-35.0) pg MCHC (31.0-37.0) g/dL RDW (11.5-15.5) % Plt Count (150-450) k/uL Neutrophils % % Lymphocytes % % Monocytes % % Eosinophils % % Basophils % % Neutrophils # (1.3-7.7) k/uL Lymphocytes # (1.0-4.8) k/uL Monocytes # (0-1.0) k/uL Eosinophils # (0-0.7) k/uL Basophils # (0-0.2) k/uL Manual Slide Review RBC Morphology PT 10.7 (9.0-12.0) sec INR 1.1 (<1.2) APTT 20.0 L (22.0-30.0) sec Sodium (137-145) mmol/L Potassium (3.5-5.1) mmol/L Chloride (98-107) mmol/L Carbon Dioxide (22-30) mmol/L Anion Gap mmol/L BUN (7-17) mg/dL Creatinine (0.52-1.04) mg/dL Est GFR (CKD-EPI)AfAm (>60 ml/min/1.73 sqM) Est GFR (CKD-EPI)NonAf (>60 ml/min/1.73 sqM) Glucose (74-99) mg/dL Plasma Lactic Acid Luis (0.7-2.0) mmol/L Calcium (8.4-10.2) mg/dL Total Bilirubin (0.2-1.3) mg/dL AST (14-36) U/L ALT (9-52) U/L Alkaline Phosphatase (38-126) U/L Total Protein (6.3-8.2) g/dL Albumin (3.5-5.0) g/dL Amylase (30-110) U/L Lipase (23-300) U/L Urine Color Yellow Urine Appearance Clear (Clear) Urine pH 6.5 (5.0-8.0) Ur Specific [place] 1.026 (1.001-1.035) Urine Protein Trace H (Negative) Urine Glucose (UA) Trace H (Negative) Urine Blood Negative (Negative) Urine Nitrite Negative (Negative) Urine Bilirubin Negative (Negative) Urine Urobilinogen <2.0 (<2.0) mg/dL Ur Leukocyte Esterase Negative (Negative) Disposition <Manuel Pierce - Last Filed: 07/01/17 14:27> Is patient prescribed a controlled substance at d/c from ED?: No <Kunal Alvares - Last Filed: 07/01/17 14:30> Clinical Impression: Ileus, Abdominal pain, Dehydration Disposition: ADMITTED IP TO THIS HOSP Condition: Stable Referrals: Kunal Man DO [Primary Care Provider] - 1-2 days
[2017-07-01 12:14] LABS: HGB 14.1 gm/dL (11.4-16.0)
[2017-07-01 12:15] LABS: ALT 23 U/L (9-52); AST 17 U/L (14-36); Albumin 3.8 g/dL (3.5-5.0); Alkaline Phosphatase 84 U/L (38-126); Amylase 33 U/L (30-110); Anion Gap 16 mmol/L; Blood Urea Nitrogen 13 mg/dL (7-17); Calcium 9.3 mg/dL (8.4-10.2); Carbon Dioxide 24 mmol/L (22-30); Chloride 99 mmol/L (98-107); Glucose 193 mg/dL (74-99); Lipase 48 U/L (23-300); Potassium 4.5 mmol/L (3.5-5.1); Sodium 139 mmol/L (137-145); Total Bilirubin 0.7 mg/dL (0.2-1.3); Total Protein 6.4 g/dL (6.3-8.2)
[2017-07-01] MEDS: IOPAMIDOL-300 CONTRAST 30 ML VIAL (ORAL USE) PO PRN (12:25)
[2017-07-01 13:39] LABS: INR 1.1 (<1.2); Prothrombin Time 10.7 sec (9.0-12.0)
[2017-07-01 14:04] LABS: Appearance,Urine Clear (Clear); Bilirubin,Urine Negative (Negative); Blood,Urine Negative (Negative); Color,Urine Yellow; Glucose,Urine (UA) Trace (Negative); Ketones,Urine 3+ (Negative); Leukocyte Esterase,Urine Negative (Negative); Nitrite,Urine Negative (Negative); PH, Urine 6.5 (5.0-8.0); Protein,Urine Trace (Negative); Specific Gravity,Urine 1.026 (1.001-1.035); Urobilinogen,Urine <2.0 mg/dL (<2.0)
--- NOTE | 2017-07-01 14:06 | CT ---
EXAMINATION TYPE: CT abdomen pelvis w con DATE OF EXAM: 07/01/2017 HISTORY: Severe abd pain, recent colectomy due to malignant tumor CT DLP: 638.1mGycm Automated Exposure Control for Dose Reduction was Utilized. CONTRAST: CT scan of the abdomen and pelvis is performed with IV Contrast, patient injected with 100 mL of Isov ue 300. COMPARISON: CT abdomen pelvis June 04, 2017 FINDINGS: LUNG BASES: There is left basilar linear scarring redemonstrated. LIVER/GB: No significant abnormality is appreciated. PANCREAS: No significant abnormality is seen. SPLEEN: Numerous calcifications throughout the spleen consistent with product of old granulomatous di sease are redemonstrated. Small splenule axial image 28 is redemonstrated.. ADRENALS: No significant abnormality is seen. KIDNEYS: No significant abnormality is seen. BOWEL: There is redemonstration of small hiatal hernia. Interval partial colectomy changes with new s utures right anterior mid abdomen are identified axial image 60. Oral contrast reaches level of mid s mall bowel. There is mild prominence of stomach and duodenal sweep. There are prominent and some dila corie contrast filled small bowel loops in the left abdomen measuring up to 3.8 cm in diameter. There i s gradual transition into fluid-filled bowel less prominent small bowel loops in the right abdomen. T here are scattered air-fluid levels. There is air-fluid levels in proximal colon just past the anasto mosis. Remainder of the colon is fairly collapsed the rectum. Nondilated distal small bowel loops are seen in the lower abdomen and upper pelvis on coronal images. UTERUS/ADNEXA: Uterus is not visualized and presumed surgically absent. There is new moderate to larg e amount of fluid in pelvis on axial image 77. Scattered pelvic phleboliths are seen. Bilateral adnex al masses favor remnant ovaries on axial image 73 not significantly changed from prior. LYMPH NODES: No greater than 1cm abdominal or pelvic lymph nodes are appreciated. OSSEOUS STRUCTURES: No significant abnormality is seen. OTHER: No significant additional abnormality is seen. IMPRESSION: Overall nonspecific bowel gas pattern. There is partial proximal colonic resection. There is a component of ileus. A partial mid small bowel obstruction is not included though is felt less l ikely. Scattered small amount of abdominal ascites with more prominent pelvic ascites is noted.
[2017-07-01] MEDS ORDERED: ACETAMINOPHEN IV (For NPO) 1,000 MG in EMPTY BAG 1 BAG IVPB STA (14:16)
[2017-07-01] MEDS ORDERED: ONDANSETRON 4 MG/2 ML VIAL IVP PRN (14:27)
[2017-07-01] MEDS ORDERED: IBUPROFEN 400 MG TAB PO PRN (14:27)
[2017-07-01] MEDS: SODIUM CHLORIDE 0.9% 1,000 ML IV SCH (15:06)
[2017-07-01 17:32] LABS: Glucose,Whole Blood 134 mg/dL (75-99)
[2017-07-01] MEDS: KETOROLAC 30 MG/ML 1 ML VIAL IVP PRN (18:11)
[2017-07-01 21:22] LABS: Glucose,Whole Blood 117 mg/dL (75-99)
[2017-07-01] MEDS: INSULIN ASPART 100 UNIT/ML 1 ML 10 ML VIAL SQ SCH (21:25)
[2017-07-01] MEDS ORDERED: ALPRAZolam 0.25 MG TAB PO PRN (21:49)
[2017-07-01] MEDS: traZODone HCL 50 MG TAB PO SCH (22:28)
[2017-07-02] MEDS: SODIUM CHLORIDE 0.9% 1,000 ML IV SCH ×2 (00:58→14:40)
[2017-07-02] MEDS: KETOROLAC 30 MG/ML 1 ML VIAL IVP PRN ×3 (01:04→21:12)
[2017-07-02] MEDS: INSULIN ASPART 100 UNIT/ML 1 ML 10 ML VIAL SQ SCH ×5 (02:25→21:06)
[2017-07-02] MEDS: ACETAMINOPHEN TAB 325 MG TAB PO PRN (06:22)
--- NOTE | 2017-07-02 07:07 | CONS ---
CONSULTATION REASON FOR CONSULTATION: Abdominal pain, distention. HISTORY OF PRESENT ILLNESS: This 51-year-old woman with a past medical history of multiple medical problems including hiatal hernia, old granulomatous disease, diabetes mellitus type 2 had recently had right colectomy as well as partial omentectomy for right-sided colonic mass. 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 The patient will be closely monitored. The patient was scheduled for outpatient PET scan as well as oncology appointment. Meanwhile, the patient reports abdominal pain, some diarrhea, abdominal distention and now currently the patient is constipated. The patient came to [facility] and was admitted for further evaluation treatment. Abdomen pelvis CAT scan was done and showed nonspecific bowel gas pattern and proximal colonic resection component of ileus was suspected also. The patient was admitted for further evaluation and treatment. There is no history of fever or rigors. No history of headache, loss of consciousness or seizures. PAST MEDICAL HISTORY: History of diabetes mellitus type 2, history of migraine, appendectomy, section. MEDICATIONS: Medications prior to admission include home medications are: 1. Trazodone 50 mg p.o. at bedtime. 2. Januvia 100 mg p.o. daily. 3. Glucotrol 10 mg daily p.r.n. 4. Wellbutrin 75 mg daily. 5. AcipHex 20 mg daily. 6. Milk of magnesia 2.4 grams p.o. daily p.r.n. 7. Lantus 18 units subcutaneously daily. 8. Motrin 800 mg t.i.d. p.r.n. 9. Colace 100 mg p.o. b.i.d., p.r.n. 10.Tylenol 650 q.6 p.r.n. ALLERGIES: Allergies are MORPHINE. FAMILY HISTORY: History of hypertension, myocardial infarction in the family. SOCIAL HISTORY: Previous history of smoking. No history of alcohol intake. REVIEW OF SYSTEMS: ENT: No diminished hearing or diminished vision. CARDIOVASCULAR SYSTEM: No angina. RESPIRATORY SYSTEM: No cough. GI: As mentioned earlier. : No dysuria. NERVOUS SYSTEM: No numbness or weakness. ALLERGY/IMMUNOLOGY: No history of asthma. MUSCULOSKELETAL: As mentioned earlier. HEMATOLOGY/ONCOLOGY: As mentioned earlier. ENDOCRINE: History of diabetes mellitus, no hypothyroidism. CONSTITUTIONAL: As mentioned earlier. DERMATOLOGY: Negative. RHEUMATOLOGY: Negative. PSYCHIATRY: As mentioned earlier. PHYSICAL EXAMINATION: The patient is alert and oriented x3. Pulse 100, blood pressure 114/63, respiration 18, temperature 97.6, pulse ox 97% on room air. HEENT: Conjunctivae normal. NECK: No jugular venous distention. CARDIOVASCULAR: S1 and S2 muffled. RESPIRATORY: Breath sounds diminished at the bases. A few scattered rhonchi and crackles. ABDOMEN: Soft, diffusely tender, obese, distended. Bowel sounds diminished. No ascites. No guarding or rigidity. LEGS: No edema, No swelling. NERVOUS SYSTEM: Higher functions as mentioned earlier. Moves all 4 limbs. No focal motor or sensory deficits. LYMPHATICS: No lymphadenopathy of the neck, axillae or groin. SKIN: No ulcer, rash or bleeding. LABS: Labs are at this time show WBC within normal limits and the APTT 20. Accu-Cheks 134. ASSESSMENT: 1. Abdominal pain, distention with possible abdominal ileus. 2. 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 3. History of hiatal hernia. 4. Old granulomatous disease. 5. Diabetes mellitus type2. 6. History of migraine. 7. History of section. 8. History of degenerative joint disease. 9. Remote history of nicotine dependence. RECOMMENDATIONS AND DISCUSSION: Recommend to continue current medications, continue symptomatic treatment, otherwise closely monitor. Otherwise surgical evaluation. DVT prophylaxis. Will follow the patient closely with you. The patient may be asked to follow up with closely after discharge. Thank you for letting us participate in the care of this patient. MMODL / IJN: [id number] / MTDD
[2017-07-02 07:16] LABS: Glucose,Whole Blood 118 mg/dL (75-99)
[2017-07-02] MEDS: HEPARIN SODIUM,PORCINE 5,000 UNIT/ML 1 ML VIAL SQ SCH ×2 (09:17→21:10)
[2017-07-02] MEDS: PANTOPRAZOLE 40 MG/10 ML VIAL IVP SCH (09:17)
[2017-07-02 11:22] VITALS: BMI 29.2
[2017-07-02 11:52] LABS: Glucose,Whole Blood 103 mg/dL (75-99)
--- NOTE | 2017-07-02 12:01 | P.CONS ---
History of Present Illness - Reason for Consult Consult date: 07/02/17 recent diagnosis of malignacy Requesting physician: Debi Shafer - Chief Complaint abd pain, distension - History of Present Illness Mrs. Farrar is a very pleasant 51-year-old female who had right colectomy and partial omentectomy on 06/06/2017 for a right colon mass. 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 Patient was due to have a PET scan to see if primary could be located. Her first PET was postponed due to hyperglycemia, her second PET was canceled due to hospital admission. Patient states over the last 3 days she has had persistent and progressive abdominal distention and discomfort, associated with lack of BM and nausea, she came to ER for evaluation. CT AP showing ileus/ partial SBO. Pt has been NPO since admit, she states feeling better today, she had about an "1/8 of a cup" of stool, she is hungry and wants to eat, her right abdomen is still slightly distended, mild discomfort. Patient denies fever, nausea, difficulty in breathing, activity intolerance, energy is fair, no other pain. Review of Systems 10 point ROS as stated in HPI Past Medical History Past Medical History: Cancer, Diabetes Mellitus Additional Past Medical History / Comment(s): migraines, rt colon mass(cancer- had sx), lt shoulder arthritis History of Any Multi-Drug Resistant Organisms: None Reported Past Surgical History: Appendectomy, Section, Hysterectomy, Orthopedic Surgery, Tubal Ligation Additional Past Surgical History / Comment(s): eye surgery(on muscles) , lt knee arthrosocpy x2, rt shoulder rotator cuff, lt shoulder bone spur/arthritis, rt colectomy on 06-06-17 Past Anesthesia/Blood Transfusion Reactions: No Reported Reaction Past Psychological History: No Psychological Hx Reported Smoking Status: Former smoker Past Alcohol Use History: None Reported Additional Past Alcohol Use History / Comment(s): age 14 smoked for 2 weeks then quit Past Drug Use History: None Reported - Past Family History Father Family Medical History: Hypertension Mother Family Medical History: Diabetes Mellitus, Hypertension, Myocardial Infarction ( [place]) Additional Family Medical History / Comment(s): mi x3 Medications and Allergies Home Medications Medication Instructions Recorded Confirmed Type Ibuprofen [Motrin] 800 mg PO TID PRN 06/04/17 07/01/17 History Insulin Glargine,Hum.rec.anlog 18 unit SQ DAILY 06/04/17 07/01/17 History [Lantus Solostar] RABEprazole SODIUM [Aciphex] 20 mg PO DAILY 06/04/17 07/01/17 History buPROPion [Wellbutrin] 75 mg PO DAILY 06/04/17 07/01/17 History glipiZIDE [Glucotrol] 10 mg PO DAILY PRN 06/04/17 07/01/17 History sitaGLIPtin [Januvia] 100 mg PO DAILY 06/04/17 07/01/17 History traZODone HCL 50 mg PO HS 06/04/17 07/01/17 History Acetaminophen Tab [Tylenol] 650 mg PO Q6HR PRN tab 06/10/17 07/01/17 Rx Docusate [Colace] 100 mg PO BID PRN 07/01/17 07/01/17 History Magnesium Hydroxide [Milk of 2,400 mg PO ONCE PRN 07/01/17 07/01/17 History Magnesia] Allergies Allergy/AdvReac Type Severity Reaction Status Date / Time morphine AdvReac Hallucinati Verified 07/01/17 15:37 ons Physical Exam Vitals: Vital Signs Temp Pulse Pulse Resp BP BP Pulse Ox 07/02/17 08:03 98.3 F 84 19 118/78 95 07/02/17 01:00 98.3 F 88 18 105/67 95 07/01/17 19:25 98.4 F 93 20 126/73 96 07/01/17 15:11 100 18 114/63 96 07/01/17 15:00 97.6 F 92 16 113/77 95 07/01/17 13:08 98.3 F 99 20 144/73 99 Intake and Output 07/01/17 07/02/17 07/02/17 22:59 06:59 14:59 Intake Total 950 Output Total 400 Balance 550 Intake: Intake, IV Titration 950 Amount Sodium Chloride 0.9% 1, 950 000 ml @ 75 mls/hr IV . [id number] [facility] Rx#:[id number] Output: Urine 400 Other: Voiding Method Toilet # Voids 1 # Bowel Movements 1 Weight 79.832 kg - Constitutional General appearance: average body habitus, cooperative, no acute distress - EENT Eyes: anicteric sclerae, normal appearance ENT: normal oropharynx - Neck Neck: no lymphadenopathy - Respiratory Respiratory: bilateral: CTA - Cardiovascular Rhythm: regular Heart sounds: normal: S1, S2 Abnormal Heart Sounds: no systolic murmur, no diastolic murmur, no rub, no S3 Gallop, no S4 Gallop, no click, no other leg Peripheral Edema: bilateral: None - Gastrointestinal Right abd to midline fullness to palpation, not rigid, no organomegaly, left abd soft General gastrointestinal: normal bowel sounds - Integumentary Integumentary: normal - Neurologic Neurologic: CNII-XII intact - Musculoskeletal Musculoskeletal: strength equal bilaterally - Psychiatric Psychiatric: A&O x's 3, appropriate affect, intact judgment & insight Results CBC & Chem 7: 07/01/17 11:50 07/01/17 11:50 Labs: Abnormal Lab Results - Last 24 Hours (Table) 07/01/17 07/01/17 07/01/17 Range/Units 11:50 11:50 12:50 MCV 79.8 L (80.0-100.0) fL APTT 20.0 L (22.0-30.0) sec Creatinine 0.42 L (0.52-1.04) mg/dL Glucose 193 H (74-99) mg/dL POC Glucose (mg/dL) (75-99) mg/dL Urine Protein (Negative) Urine Glucose (UA) (Negative) Urine Ketones (Negative) 07/01/17 07/01/17 07/01/17 Range/Units 13:50 17:30 21:20 MCV (80.0-100.0) fL APTT (22.0-30.0) sec Creatinine (0.52-1.04) mg/dL Glucose (74-99) mg/dL POC Glucose (mg/dL) 134 H 117 H (75-99) mg/dL Urine Protein Trace H (Negative) Urine Glucose (UA) Trace H (Negative) Urine Ketones 3+ H (Negative) 07/02/17 Range/Units 07:15 MCV (80.0-100.0) fL APTT (22.0-30.0) sec Creatinine (0.52-1.04) mg/dL Glucose (74-99) mg/dL POC Glucose (mg/dL) 118 H (75-99) mg/dL Urine Protein (Negative) Urine Glucose (UA) (Negative) Urine Ketones (Negative) CT scan - abdomen: report reviewed CT scan - pelvis: report reviewed Assessment and Plan (1) Cancer with unknown primary site Narrative/Plan: Pathology report reviewed after addendum from [facility]. Addendum reports spindle cell neoplasm, most consistent with a sarcomatoid carcinoma, likely metastasis or direct involvement from another primary site, renal or mullerian primary suspected. Pt was due to have PET but 1st was cancelled due to hyperglycemia and second because of hospitalization. PET has been rescheduled, appt date and time in discharge. The scan will identify if there are any areas of increased uptake that could represent primary site, and a biopsy target or, there is a potential that recent surgery removed the malignancy completely. Pt verbalized understanding the plan of care. All questions answered to the best of my ability Current Visit: Yes Status: Acute Priority: High Code(s): C80.1 - MALIGNANT (PRIMARY) NEOPLASM, UNSPECIFIED SNOMED Code(s): 653418754 Plan: Current condition defer management to Surgery and IM
[2017-07-02] MEDS ORDERED: SUMAtriptan SUCCINATE 25 MG TAB PO STA ×2 (12:12→13:25)
[2017-07-02 17:17] LABS: Glucose,Whole Blood 140 mg/dL (75-99)
--- NOTE | 2017-07-02 17:18 | P.GSHP ---
History of Present Illness H&P Date: 07/01/17 Chief Complaint: Abdominal pain This a 51-year-old female who's recently diagnosed with intra-abdominal sarcoma. Patient was at her family doctor's office points of nausea and abdominal distention. Patient presents emergency room and worked up and on CAT scan was found have evidence of ileus. Patient admitted to the hospital for nausea dehydration and ileus. Past Medical History Past Medical History: Cancer, Diabetes Mellitus Additional Past Medical History / Comment(s): migraines, rt colon mass(cancer- had sx), lt shoulder arthritis History of Any Multi-Drug Resistant Organisms: None Reported Past Surgical History: Appendectomy, Section, Hysterectomy, Orthopedic Surgery, Tubal Ligation Additional Past Surgical History / Comment(s): eye surgery(on muscles) , lt knee arthrosocpy x2, rt shoulder rotator cuff, lt shoulder bone spur/arthritis, rt colectomy on 06-06-17 Past Anesthesia/Blood Transfusion Reactions: No Reported Reaction Past Psychological History: No Psychological Hx Reported Smoking Status: Former smoker Past Alcohol Use History: None Reported Additional Past Alcohol Use History / Comment(s): age 14 smoked for 2 weeks then quit Past Drug Use History: None Reported - Past Family History Father Family Medical History: Hypertension Mother Family Medical History: Diabetes Mellitus, Hypertension, Myocardial Infarction ( [place]) Additional Family Medical History / Comment(s): mi x3 Medications and Allergies Home Medications Medication Instructions Recorded Confirmed Type Ibuprofen [Motrin] 800 mg PO TID PRN 06/04/17 07/01/17 History Insulin Glargine,Hum.rec.anlog 18 unit SQ DAILY 06/04/17 07/01/17 History [Lantus Solostar] RABEprazole SODIUM [Aciphex] 20 mg PO DAILY 06/04/17 07/01/17 History buPROPion [Wellbutrin] 75 mg PO DAILY 06/04/17 07/01/17 History glipiZIDE [Glucotrol] 10 mg PO DAILY PRN 06/04/17 07/01/17 History sitaGLIPtin [Januvia] 100 mg PO DAILY 06/04/17 07/01/17 History traZODone HCL 50 mg PO HS 06/04/17 07/01/17 History Acetaminophen Tab [Tylenol] 650 mg PO Q6HR PRN tab 06/10/17 07/01/17 Rx Docusate [Colace] 100 mg PO BID PRN 07/01/17 07/01/17 History Magnesium Hydroxide [Milk of 2,400 mg PO ONCE PRN 07/01/17 07/01/17 History Magnesia] Allergies Allergy/AdvReac Type Severity Reaction Status Date / Time morphine AdvReac Hallucinati Verified 07/01/17 15:37 ons Surgical - Exam Vital Signs Temp Pulse Resp BP Pulse Ox 98.6 F 103 H 20 134/72 98 07/01/17 11:21 07/01/17 11:21 07/01/17 11:21 07/01/17 11:21 07/01/17 11:21 - General well developed, no distress - Eyes PERRL - ENT normal pinna - Neck no masses - Respiratory normal expansion - Cardiovascular Rhythm: regular - Abdomen Abdomen is soft. The abdomen is distended. There is some minimal epigastric tenderness. There is no rebound or guarding Abdomen: soft Results - Labs 07/01/17 11:50 07/01/17 11:50 Abnormal Lab Results - Last 24 Hours (Table) 07/01/17 07/01/17 07/02/17 Range/Units 17:30 21:20 07:15 POC Glucose (mg/dL) 134 H 117 H 118 H (75-99) mg/dL 07/02/17 Range/Units 11:48 POC Glucose (mg/dL) 103 H (75-99) mg/dL Assessment and Plan Assessment: Ileus. Patient will be observed. We will start her diet once she has some return of bowel function.
--- NOTE | 2017-07-02 17:19 | P.PN ---
Progress Note - Text Progress Note Date: 07/02/17 The patient feels slightly better today. She still has some complaints of abdominal distention. She states her nausea has improved. She is tolerating clear liquids. She had a small liquid bowel movement. On exam her vital signs are stable. Her abdomen is soft. The abdomen is slightly distended. There is no significant tenderness. Recently diagnosed interbowel sarcoma. Patient is has a slowly resolving ileus. She'll remain on clear liquids. We will advance her diet once she has return of bowel function.
[2017-07-02] MEDS: METOCLOPRAMIDE 5 MG/ML 2 ML VIAL IVP SCH (18:29)
--- NOTE | 2017-07-02 20:00 | PN ---
PROGRESS NOTE DATE OF SERVICE: 07/02/2017. INTERIM HISTORY: This 51-year-old woman who was admitted with abdominal pain after surgery, had a possible abdominal ileus. Dr. Bowling and Hematology/Oncology following the patient closely. The patient is on clear liquids at this time. The patient for possible a sarcomatoid carcinoma. No chest pain. No palpitations. No fever. EXAM: Alert and oriented times three. Pulse is 93, pressure 122/74, respiration 18, temperature 98.2, pulse ox 97% on room air. HEENT: Conjunctivae normal. Neck: No jugular venous distention. Cardiovascular systems: S1, S2 muffled. Respirations: Breath sounds diminished in the bases. A few scattered rhonchi and crackles. Abdomen is soft. Mild diffuse distention. Legs: No edema. No swelling. Central nervous system: No focal deficits. LABS: Accu-Cheks 103, 140. ASSESSMENT: 1. Abdominal pain possibly distention with possible abdominal ileus. 2. History of recent colectomy for malignant neoplasm, mostly consistent with sarcomatoid carcinoma. 3. History of hiatal hernia. 4. Old granulomatous disease. 5. Diabetes type 2. 6. History of migraines. 7. Degenerative joint disease. 8. Remote history of nicotine dependence. RECOMMENDATIONS AND DISCUSSION: Continue current medications, management and symptomatic treatment. Otherwise, at this time, I recommend closely follow with surgery. Clear liquids. Guarded prognosis. Further recommendations to follow. MMODL / IJN: [id number] /
[2017-07-02 20:50] LABS: Glucose,Whole Blood 118 mg/dL (75-99)
[2017-07-02] MEDS: traZODone HCL 50 MG TAB PO SCH (21:12)
[2017-07-03] MEDS: METOCLOPRAMIDE 5 MG/ML 2 ML VIAL IVP SCH ×4 (00:22→18:08)
[2017-07-03 02:06] LABS: Glucose,Whole Blood 102 mg/dL (75-99)
[2017-07-03] MEDS: INSULIN ASPART 100 UNIT/ML 1 ML 10 ML VIAL SQ SCH ×5 (02:20→20:56)
[2017-07-03] MEDS: KETOROLAC 30 MG/ML 1 ML VIAL IVP PRN ×3 (03:23→20:47)
[2017-07-03] MEDS: SODIUM CHLORIDE 0.9% 1,000 ML IV SCH ×2 (06:08→19:02)
[2017-07-03 06:58] LABS: Glucose,Whole Blood 120 mg/dL (75-99)
[2017-07-03 08:20] LABS: Basophils % (A) 0 %; Eosinophils # (A) 0.8 k/uL (0-0.7); Eosinophils % (A) 16 %; Lymphocytes # (A) 0.7 k/uL (1.0-4.8); Lymphocytes % (A) 15 %; MCH 26.6 pg (25.0-35.0); MCHC 32.4 g/dL (31.0-37.0); Mean Platelet Volume 7.2; Monocytes # (A) 0.4 k/uL (0-1.0); Monocytes % (A) 8 %; Neutrophils # (A) 2.8 k/uL (1.3-7.7); Neutrophils % (A) 59 %; Platelet Count 310 k/uL (150-450); RBC 4.02 m/uL (3.80-5.40); WBC 4.7 k/uL (3.8-10.6)
[2017-07-03 08:25] LABS: HGB 10.7 gm/dL (11.4-16.0)
[2017-07-03 08:41] LABS: ALT 21 U/L (9-52); AST 10 U/L (14-36); Albumin 2.8 g/dL (3.5-5.0); Alkaline Phosphatase 60 U/L (38-126); Anion Gap 11 mmol/L; Blood Urea Nitrogen 6 mg/dL (7-17); Calcium 8.2 mg/dL (8.4-10.2); Carbon Dioxide 21 mmol/L (22-30); Chloride 107 mmol/L (98-107); Glucose 156 mg/dL (74-99); Sodium 139 mmol/L (137-145); Total Bilirubin 0.2 mg/dL (0.2-1.3); Total Protein 4.9 g/dL (6.3-8.2)
[2017-07-03] MEDS: PANTOPRAZOLE 40 MG/10 ML VIAL IVP SCH (08:49)
[2017-07-03] MEDS: HEPARIN SODIUM,PORCINE 5,000 UNIT/ML 1 ML VIAL SQ SCH ×2 (08:50→20:57)
[2017-07-03] MEDS: INSULIN DETEMIR 100 UNIT/ML 10 ML VIAL SQ SCH (10:20)
[2017-07-03] MEDS: NEOMYCIN-BACITRACIN-POLY OINT 14 GM TUBE TOPICAL SCH ×2 (11:06→20:57)
[2017-07-03 11:53] LABS: Glucose,Whole Blood 107 mg/dL (75-99)
--- NOTE | 2017-07-03 15:07 | PN ---
PROGRESS NOTE DATE OF SERVICE: 07/03/2017. This 51-year-old woman was admitted with abdominal pain and distention with possible abdominal ileus, has been closely monitored. No chest pain. No palpitations. No fever. Dr. Bowling is following the patient closely. PHYSICAL EXAM: Alert and oriented x3. Pulse 98, blood pressure 143/83, respirations 16, temperature 98.6, pulse ox 97% on room air. HEENT: Conjunctivae normal. NECK: No jugular venous distention. CARDIOVASCULAR: S1, S2 RESPIRATORY: Breath sounds diminished in the bases. No rhonchi, no crackles. ABDOMEN: Soft, mild diffuse distention. Mild diffuse tenderness also present. LEGS: No edema, no cyanosis. NERVOUS SYSTEM: No focal deficits. LABS: WBC 12.2, hemoglobin 10.7, albumin is 2.8. ASSESSMENT: 1. Abdominal pain possibly distention with possible abdominal ileus. 2. History of recent colectomy for malignant neoplasm, mostly consistent with sarcomatoid carcinoma. 3. History of hiatal hernia. 4. Old granulomatous disease. 5. Diabetes mellitus type 2. 6. History of migraine. 7. History of degenerative joint disease. RECOMMENDATIONS AND DISCUSSION: I recommend to continue current medications, monitor and symptomatic treatment. Otherwise, closely follow with Surgery. Conservative line of management. Further recommendations to follow. MMODL / IJN: [id number] /
[2017-07-03 16:43] LABS: Glucose,Whole Blood 187 mg/dL (75-99)
--- NOTE | 2017-07-03 17:10 | P.PN ---
Subjective Progress Note Date: 07/03/17 Principal diagnosis: post op ileus, partial SBO Pt has started eating today, no nausea, abd is still uncomfortable but, not painful, she has passed flatus and had BM Objective - Vital Signs Vital signs: Vital Signs Temp 98.5 F 07/03/17 16:05 Pulse 90 07/03/17 16:05 Resp 16 07/03/17 16:05 BP 136/81 07/03/17 16:05 Pulse Ox 94 L 07/03/17 16:05 Intake & Output 07/02/17 07/03/17 07/03/17 18:59 06:59 18:59 Intake Total 480 900 360 Balance 480 900 360 Weight 79.832 kg Intake: Oral 480 900 360 Other: Voiding Method Toilet # Voids 2 1 1 # Bowel Movements 2 1 - Constitutional General appearance: Present: cooperative, no acute distress, obese - Gastrointestinal General gastrointestinal: Present: normal bowel sounds Localized gastrointestinal: tender: epigastric periumbilical - Integumentary Integumentary: Present: normal - Neurologic Neurologic: Present: CNII-XII intact - Musculoskeletal Musculoskeletal: Present: strength equal bilaterally - Psychiatric Psychiatric: Present: A&O x's 3, appropriate affect, intact judgment & insight - Labs CBC & Chem 7: 07/03/17 08:08 07/03/17 08:08 Labs: Abnormal Lab Results - Last 24 Hours (Table) 07/02/17 07/02/17 07/03/17 Range/Units 17:15 20:48 02:05 Hgb (11.4-16.0) gm/dL Hct (34.0-46.0) % Lymphocytes # (1.0-4.8) k/uL Eosinophils # (0-0.7) k/uL Carbon Dioxide (22-30) mmol/L BUN (7-17) mg/dL Creatinine (0.52-1.04) mg/dL Glucose (74-99) mg/dL POC Glucose (mg/dL) 140 H 118 H 102 H (75-99) mg/dL Calcium (8.4-10.2) mg/dL AST (14-36) U/L Total Protein (6.3-8.2) g/dL Albumin (3.5-5.0) g/dL 07/03/17 07/03/1707/03/18 Range/Units 06:56 08:08 08:08 Hgb 10.7 L D (11.4-16.0) gm/dL Hct 33.0 L (34.0-46.0) % Lymphocytes # 0.7 L (1.0-4.8) k/uL Eosinophils # 0.8 H (0-0.7) k/uL Carbon Dioxide 21 L (22-30) mmol/L BUN 6 L (7-17) mg/dL Creatinine 0.38 L (0.52-1.04) mg/dL Glucose 156 H (74-99) mg/dL POC Glucose (mg/dL) 120 H (75-99) mg/dL Calcium 8.2 L (8.4-10.2) mg/dL AST 10 L (14-36) U/L Total Protein 4.9 L (6.3-8.2) g/dL Albumin 2.8 L (3.5-5.0) g/dL 07/03/17 07/03/17 Range/Units 11:51 16:41 Hgb (11.4-16.0) gm/dL Hct (34.0-46.0) % Lymphocytes # (1.0-4.8) k/uL Eosinophils # (0-0.7) k/uL Carbon Dioxide (22-30) mmol/L BUN (7-17) mg/dL Creatinine (0.52-1.04) mg/dL Glucose (74-99) mg/dL POC Glucose (mg/dL) 107 H 187 H (75-99) mg/dL Calcium (8.4-10.2) mg/dL AST (14-36) U/L Total Protein (6.3-8.2) g/dL Albumin (3.5-5.0) g/dL Assessment and Plan (1) Cancer with unknown primary site Narrative/Plan: PET rescheduled, date and time in chart. Follow up appt with Dr. Plaza for plan of care in chart. Pt and understand plan, no questions Current Visit: Yes Status: Acute Priority: High Code(s): C80.1 - MALIGNANT (PRIMARY) NEOPLASM, UNSPECIFIED SNOMED Code(s): 356135518 Plan: Current condition defer management to Surgery and IM
[2017-07-03] MEDS: ACETAMINOPHEN TAB 325 MG TAB PO PRN (20:25)
[2017-07-03 20:54] LABS: Glucose,Whole Blood 138 mg/dL (75-99)
[2017-07-03] MEDS: traZODone HCL 50 MG TAB PO SCH (20:57)
[2017-07-04] MEDS: METOCLOPRAMIDE 5 MG/ML 2 ML VIAL IVP SCH ×4 (00:28→18:11)
[2017-07-04 02:15] LABS: Glucose,Whole Blood 130 mg/dL (75-99)
[2017-07-04] MEDS: INSULIN ASPART 100 UNIT/ML 1 ML 10 ML VIAL SQ SCH ×5 (02:40→21:06)
[2017-07-04] MEDS: KETOROLAC 30 MG/ML 1 ML VIAL IVP PRN ×3 (04:17→17:14)
[2017-07-04 06:42] LABS: Glucose,Whole Blood 138 mg/dL (75-99)
[2017-07-04] MEDS: SODIUM CHLORIDE 0.9% 1,000 ML IV SCH ×2 (06:53→18:18)
[2017-07-04] MEDS: INSULIN DETEMIR 100 UNIT/ML 10 ML VIAL SQ SCH (08:38)
[2017-07-04] MEDS: HEPARIN SODIUM,PORCINE 5,000 UNIT/ML 1 ML VIAL SQ SCH ×2 (08:40→21:02)
[2017-07-04] MEDS: PANTOPRAZOLE 40 MG/10 ML VIAL IVP SCH (08:40)
[2017-07-04] MEDS: NEOMYCIN-BACITRACIN-POLY OINT 14 GM TUBE TOPICAL SCH ×2 (08:41→21:18)
[2017-07-04 11:45] LABS: Glucose,Whole Blood 120 mg/dL (75-99)
--- NOTE | 2017-07-04 13:31 | P.PN ---
Progress Note - Text Progress Note Date: 07/04/17 The patient had complaints of nausea early yesterday morning. At approximate 4: 30 AM she actually vomited. Since she vomited she's had no further nausea or abdominal pain. She's had some oral clear liquids today. She's not had any significant bowel movements or flatus. On exam her vital signs are stable. Her abdomen soft and mildly distended. Dilantin discussion with the patient. I recommended she stay today and continue clear liquid diet. She will need to have her PET scan rescheduled. Her diet will be advanced once her ileus improves.
[2017-07-04 18:06] LABS: Glucose,Whole Blood 144 mg/dL (75-99)
--- NOTE | 2017-07-04 20:47 | PN ---
PROGRESS NOTE DATE OF SERVICE: 07/04/2017 This 51-year-old woman who was admitted with abdominal pain and possibly distention as well as abdominal ileus is being closely monitored at this time. The patient had a bowel movement today. Partial small bowel obstruction is considered. No chest pain. No palpitations. No fever. On exam, alert and oriented x3. Pulse 92, blood pressure 132/77, respiration 18, temperature 98.4, pulse ox 98% on room air. HEENT: Conjunctivae normal. NECK: No jugular venous distention. CARDIOVASCULAR SYSTEM: S1, S2 muffled. RESPIRATORY SYSTEM: Breath sounds diminished at the bases. A few scattered rhonchi and crackles. ABDOMEN: Soft. Mild diffuse discomfort. Mild diffuse distention. LEGS: No edema. No swelling. NERVOUS SYSTEM: No focal deficit. LABS: WBC 4.7, hemoglobin 10.7, sodium 139, potassium 4. ASSESSMENT: 1. Abdominal pain, possibly distention with possible abdominal ileus. 2. History of recent colectomy for malignant neoplasm mostly consistent with sarcomatoid carcinoma. 3. History of hiatal hernia. 4. Old granulomatous disease. 5. Diabetes mellitus, type 2. 6. History of migraine. RECOMMENDATIONS AND DISCUSSION: I recommend to continue current medication, continue symptomatic treatment. Continue with symptomatic management. Closely follow with Surgery. Further recommendations to follow. MMODL / IJN: [id number] /
[2017-07-04] MEDS: traZODone HCL 50 MG TAB PO SCH (21:02)
[2017-07-04 21:03] LABS: Glucose,Whole Blood 133 mg/dL (75-99)
[2017-07-05] MEDS: METOCLOPRAMIDE 5 MG/ML 2 ML VIAL IVP SCH ×4 (00:14→17:11)
[2017-07-05 01:52] LABS: Glucose,Whole Blood 118 mg/dL (75-99)
[2017-07-05] MEDS: INSULIN ASPART 100 UNIT/ML 1 ML 10 ML VIAL SQ SCH ×5 (02:18→21:08)
[2017-07-05] MEDS: SODIUM CHLORIDE 0.9% 1,000 ML IV SCH ×2 (05:58→18:00)
[2017-07-05 06:39] LABS: Glucose,Whole Blood 134 mg/dL (75-99)
[2017-07-05] MEDS: NEOMYCIN-BACITRACIN-POLY OINT 14 GM TUBE TOPICAL SCH ×2 (08:51→21:14)
[2017-07-05] MEDS: INSULIN DETEMIR 100 UNIT/ML 10 ML VIAL SQ SCH (08:52)
[2017-07-05] MEDS: HEPARIN SODIUM,PORCINE 5,000 UNIT/ML 1 ML VIAL SQ SCH ×2 (08:52→21:09)
[2017-07-05] MEDS: KETOROLAC 30 MG/ML 1 ML VIAL IVP PRN ×2 (08:52→16:18)
[2017-07-05] MEDS: PANTOPRAZOLE 40 MG/10 ML VIAL IVP SCH (09:15)
--- NOTE | 2017-07-05 10:12 | P.PN ---
Subjective Progress Note Date: 07/05/17 Principal diagnosis: Ileus Patient doing better today. She is tolerating diet. She is having loose liquid stools. Pain is improved although still present. Mildly tachycardic. No labs today. Objective - Vital Signs Vital signs: Vital Signs Temp 98.5 F 07/05/17 06:17 Pulse 105 H 07/05/17 06:17 Resp 16 07/05/17 06:17 BP 148/85 07/05/17 06:17 Pulse Ox 95 07/05/17 06:17 Intake & Output 07/04/17 07/05/17 07/05/17 18:59 06:59 18:59 Intake Total 360 Balance 360 Intake: Oral 360 Other: Voiding Method Toilet Toilet # Voids 1 1 # Bowel Movements 1 1 - Exam Abdomen: Soft, nondistended, mild right-sided tenderness and fullness - Labs CBC & Chem 7: 07/03/17 08:08 07/03/17 08:08 Labs: Abnormal Lab Results - Last 24 Hours (Table) 07/04/17 07/04/17 07/04/17 Range/Units 11:42 17:47 21:01 POC Glucose (mg/dL) 120 H 144 H 133 H (75-99) mg/dL 07/05/17 07/05/17 Range/Units 01:49 06:37 POC Glucose (mg/dL) 118 H 134 H (75-99) mg/dL Assessment and Plan (1) S/P right hemicolectomy Narrative/Plan: Continue regular diet. Ambulate. Recheck labs tomorrow. Current Visit: No Status: Acute Code(s): Z90.49 - ACQUIRED ABSENCE OF OTHER SPECIFIED PARTS OF DIGESTIVE TRACT SNOMED Code(s): 775913419
[2017-07-05 11:49] LABS: Glucose,Whole Blood 134 mg/dL (75-99)
[2017-07-05 16:28] LABS: Glucose,Whole Blood 164 mg/dL (75-99)
[2017-07-05 21:02] LABS: Glucose,Whole Blood 174 mg/dL (75-99)
[2017-07-05] MEDS: traZODone HCL 50 MG TAB PO SCH (21:10)
[2017-07-05] MEDS: ACETAMINOPHEN TAB 325 MG TAB PO PRN (23:15)
[2017-07-06] MEDS: METOCLOPRAMIDE 5 MG/ML 2 ML VIAL IVP SCH ×3 (00:39→12:10)
[2017-07-06 02:11] LABS: Glucose,Whole Blood 126 mg/dL (75-99)
[2017-07-06] MEDS: INSULIN ASPART 100 UNIT/ML 1 ML 10 ML VIAL SQ SCH ×3 (02:41→12:17)
[2017-07-06] MEDS: SODIUM CHLORIDE 0.9% 1,000 ML IV SCH (06:22)
[2017-07-06] MEDS: ACETAMINOPHEN TAB 325 MG TAB PO PRN (06:33)
[2017-07-06 06:58] LABS: Basophils % (A) 0 %; Eosinophils # (A) 1.1 k/uL (0-0.7); Eosinophils % (A) 17 %; HCT 34.9 % (34.0-46.0); HGB 11.6 gm/dL (11.4-16.0); Lymphocytes % (A) 14 %; MCH 26.9 pg (25.0-35.0); MCHC 33.2 g/dL (31.0-37.0); MCV 81.2 fL (80.0-100.0); Mean Platelet Volume 6.9; Monocytes # (A) 0.5 k/uL (0-1.0); Monocytes % (A) 7 %; Neutrophils % (A) 60 %; Platelet Count 353 k/uL (150-450); RBC 4.29 m/uL (3.80-5.40); RDW 13.2 % (11.5-15.5); WBC 6.6 k/uL (3.8-10.6)
[2017-07-06 07:22] LABS: Glucose,Whole Blood 160 mg/dL (75-99)
[2017-07-06] MEDS: NEOMYCIN-BACITRACIN-POLY OINT 14 GM TUBE TOPICAL SCH (07:36)
[2017-07-06] MEDS: INSULIN DETEMIR 100 UNIT/ML 10 ML VIAL SQ SCH (07:44)
[2017-07-06 07:47] LABS: ALT 40 U/L (9-52); AST 27 U/L (14-36); Albumin 2.8 g/dL (3.5-5.0); Alkaline Phosphatase 77 U/L (38-126); Anion Gap 13 mmol/L; Blood Urea Nitrogen 2 mg/dL (7-17); Calcium 8.5 mg/dL (8.4-10.2); Carbon Dioxide 22 mmol/L (22-30); Chloride 107 mmol/L (98-107); Glucose 161 mg/dL (74-99); Potassium 3.7 mmol/L (3.5-5.1); Sodium 142 mmol/L (137-145); Total Bilirubin 0.3 mg/dL (0.2-1.3); Total Protein 5.1 g/dL (6.3-8.2)
[2017-07-06 08:23] VITALS: BP 150/83; PULSE 95; RESP 17; TEMP 98.5
[2017-07-06] MEDS: HEPARIN SODIUM,PORCINE 5,000 UNIT/ML 1 ML VIAL SQ SCH (09:15)
[2017-07-06] MEDS: PANTOPRAZOLE 40 MG/10 ML VIAL IVP SCH (09:15)
--- NOTE | 2017-07-06 10:50 | P.DS ---
Providers Date of admission: 07/01/17 14:28 Expected date of discharge: 07/06/17 Attending physician: Stefano Bowling Consults: 07/01/17 17:36 Consult Physician Routine Consulting Provider: Debi Shafer Consult Reason/Comments: medical management on Type II diabetic patient Do you want consulting provider notified?: Yes 07/01/17 19:32 Consult Physician Routine Consulting Provider: Javier Plaza Consult Reason/Comments: malignancy Do you want consulting provider notified?: Yes Primary care physician: Kunal Man - Discharge Diagnosis(es) (1) S/P right hemicolectomy Patient was admitted after being discharged post right colectomy. She came back in the hospital with complaints of nausea vomiting and ileus by workup. The patient was kept nothing by mouth initially. Her diet was then gradually advanced as her I'll function returned. She is now tolerating a regular diet. She is hoping to go home today. Her abdominal examination is benign with minimal incisional tenderness. She will see Dr. Bowling in [address] Plaza later this week as well. Current Visit: No Status: Acute Patient Condition at Discharge: Stable Plan - Discharge Summary Discharge Rx Participant: Yes New Discharge Prescriptions: No Action traZODone HCL 50 mg PO HS RABEprazole SODIUM [Aciphex] 20 mg PO DAILY sitaGLIPtin [Januvia] 100 mg PO DAILY glipiZIDE [Glucotrol] 10 mg PO DAILY PRN PRN Reason: HIGH BLOOD SUGAR buPROPion [Wellbutrin] 75 mg PO DAILY Insulin Glargine,Hum.rec.anlog [Lantus Solostar] 18 unit SQ DAILY Ibuprofen [Motrin] 800 mg PO TID PRN PRN Reason: Pain Acetaminophen Tab [Tylenol] 650 mg PO Q6HR PRN tab PRN Reason: Fever And/ Or Pain Docusate [Colace] 100 mg PO BID PRN PRN Reason: Constipation Magnesium Hydroxide [Milk of Magnesia] 2,400 mg PO ONCE PRN PRN Reason: Constipation Discharge Medication List Ibuprofen [Motrin] 800 mg PO TID PRN 06/04/17 [History] Insulin Glargine,Hum.rec.anlog [Lantus Solostar] 18 unit SQ DAILY 06/04/17 [ History] RABEprazole SODIUM [Aciphex] 20 mg PO DAILY 06/04/17 [History] buPROPion [Wellbutrin] 75 mg PO DAILY 06/04/17 [History] glipiZIDE [Glucotrol] 10 mg PO DAILY PRN 06/04/17 [History] sitaGLIPtin [Januvia] 100 mg PO DAILY 06/04/17 [History] traZODone HCL 50 mg PO HS 06/04/17 [History] Acetaminophen Tab [Tylenol] 650 mg PO Q6HR PRN tab 06/10/17 [Rx] Docusate [Colace] 100 mg PO BID PRN 07/01/17 [History] Magnesium Hydroxide [Milk of Magnesia] 2,400 mg PO ONCE PRN 07/01/17 [History] Follow up Appointment(s)/Referral(s): Javier Plaza MD [STAFF PHYSICIAN] - 07/10/17 3:45 pm Kunal Man DO [Primary Care Provider] - 1-2 days Patient Instructions/Handouts: Non-pharmacological Pain Management Therapies for Adults (GEN) Activity/Diet/Wound Care/Special Instructions: PET scan rescheduled to be completed at [facility]. Sunday, July 09, 2017 at 0730 am. Please arrive at 0700 am.
[2017-07-06 11:28] LABS: Glucose,Whole Blood 168 mg/dL (75-99)
--- NOTE | 2017-07-06 17:20 | P.PN ---
Subjective 51-year-old female was admitted secondary to ileus ileus improved patient has minimal diarrhea patient is being discharged from surgical perspective are asked to reevaluate the regarding her insulin regimen. Patient did not take any insulin with well-controlled blood sugars. I do not have any hemoglobin A1c available. Insulin will be discontinued, regarding glipizide asked her to take 5 mg if her fasting blood sugars are above 180, and 10 mg of the fasting blood sugars are about 250. Patient is okay to discharged from medical perspective. Constitutional: Denied any fatigue denied any fever. Cardio vascular: denied any chest pain, palpitations Gastrointestinal denied any nausea vomiting Pulmonary: Denied any shortness of breath cough Neurologic denied any new focal deficits Objective - Vital Signs Vital signs: Vital Signs Temp 98.5 F 07/06/17 08:20 Pulse 95 07/06/17 08:20 Resp 17 07/06/17 08:20 BP 150/83 07/06/17 08:20 Pulse Ox 96 07/06/17 08:20 Intake & Output 07/05/17 07/06/17 07/06/17 18:59 06:59 18:59 Intake Total 300 Balance 300 Intake: Oral 300 Other: Voiding Method Toilet Toilet # Voids 1 - Exam PHYSICAL EXAMINATION: GENERAL: The patient is alert and oriented x3, not in any acute distress. Well developed, well nourished. HEENT: Pupils are round and equally reacting to light. EOMI. No scleral icterus. No conjunctival pallor. Normocephalic, atraumatic. No pharyngeal erythema. No thyromegaly. CARDIOVASCULAR: S1 and S2 present. No murmurs, rubs, or gallops. PULMONARY: Chest is clear to auscultation, no wheezing or crackles. ABDOMEN: Soft, nontender, nondistended, normoactive bowel sounds. No palpable organomegaly. MUSCULOSKELETAL: No joint swelling or deformity. EXTREMITIES: No cyanosis, clubbing, or pedal edema. NEUROLOGICAL: Gross neurological examination did not reveal any focal deficits. SKIN: No rashes. - Labs CBC & Chem 7: 07/06/17 06:47 07/06/17 06:47 Labs: Abnormal Lab Results - Last 24 Hours (Table) 07/05/17 07/06/17 07/06/17 Range/Units 20:54 02:09 06:47 Eosinophils # 1.1 H (0-0.7) k/uL BUN (7-17) mg/dL Creatinine (0.52-1.04) mg/dL Glucose (74-99) mg/dL POC Glucose (mg/dL) 174 H 126 H (75-99) mg/dL Total Protein (6.3-8.2) g/dL Albumin (3.5-5.0) g/dL 07/06/17 07/06/17 07/06/17 Range/Units 06:47 07:20 11:24 Eosinophils # (0-0.7) k/uL BUN 2 L (7-17) mg/dL Creatinine 0.35 L (0.52-1.04) mg/dL Glucose 161 H (74-99) mg/dL POC Glucose (mg/dL) 160 H 168 H (75-99) mg/dL Total Protein 5.1 L (6.3-8.2) g/dL Albumin 2.8 L (3.5-5.0) g/dL Assessment and Plan Plan: -Ileus: Resolved, 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
== END 2017-07-06 12:45 | disposition home or self-care (01) | DRG 389 ==
LOC: EC 11:19 → 6PED 14:28
PROVIDERS: ADMIT Surgery; ATTEND Surgery
DX: K56.7 Ileus, unspecified (principal); C49.9 Malignant neoplasm of connective and soft tissue, unspecified; C79.89 Secondary malignant neoplasm of other specified sites; E11.65 Type 2 diabetes mellitus with hyperglycemia; D71 Functional disorders of polymorphonuclear neutrophils; E86.0 Dehydration; G43.909 Migraine, unspecified, not intractable, without status migrainosus; K44.9 Diaphragmatic hernia without obstruction or gangrene; M77.9 Enthesopathy, unspecified; M19.012 Primary osteoarthritis, left shoulder; E66.9 Obesity, unspecified; Z68.29 Body mass index [BMI] 29.0-29.9, adult; Z71.3 Dietary counseling and surveillance; Z79.4 Long term (current) use of insulin; Z79.899 Other long term (current) drug therapy; Z90.710 Acquired absence of both cervix and uterus; Z90.49 Acquired absence of other specified parts of digestive tract; Z87.891 Personal history of nicotine dependence; Z98.51 Tubal ligation status; Z88.5 Allergy status to narcotic agent; Z82.49 Family history of ischemic heart disease and other diseases of the circulatory system; Z83.3 Family history of diabetes mellitus
CPT/HCPCS: 36415; 74019; 74177; 80053; 81003; 82150; 83605; 83690; 85025; 85610; 85730; 87324; 96361; 96374; 96375; 99285

== ENCOUNTER → 2017-07-01 | Outpatient (CLI) | payer OTHER ==
--- NOTE | 2017-07-01 10:17 | XR ---
EXAMINATION TYPE: XR abdomen 2V DATE OF EXAM: 07/01/2017 HISTORY: Pain. Technique: 2 views of the abdomen are submitted. Comparison: None. Findings: Dilated small bowel is noted with air-fluid levels seen. Dilated loops measure up to 4.6 cm. There is paucity of gas throughout the colon. Ring of sutures is noted in the left lower quadrant. No mass effects are noted. No renal calcifications are identified. IMPRESSION: 1. Dilated small bowel which could reflect postoperative ileus. Obstruction is not excluded. Progress studies are recommended.
== END | disposition home or self-care (01) ==
LOC: RADXRYALE 09:50
PROVIDERS: ATTEND Family Medicine
DX: Z53.9 Procedure and treatment not carried out, unspecified reason (principal)
CPT/HCPCS: 74019

== ENCOUNTER → 2017-07-16 | Outpatient (CLI) | payer OTHER ==
--- NOTE | 2017-07-17 09:09 | MR ---
EXAMINATION TYPE: MR liver wo/w con DATE OF EXAM: 07/16/2017 COMPARISON: CT abdomen and pelvis July 01, 2017 HISTORY: Colonic tumor resected June 06, [address] CONTRAST: Standard multiplanar, multisequence MRI departmental protocol utilizing 7.5 mL intravenous Gadavist g adolinium contrast. Imaging is performed of the abdomen focusing on the liver. FINDINGS: Liver: Liver is overall normal in size. There is mild diffuse signal dropout consistent with mild fat ty infiltration. Seen much better on MRI versus CT there are multiple solid lesions scattered through out the liver that shows T1 hypointensity and T2 hyperintensity, for reference series 501 image 37-- 2 lesions are seen hepatic dome, there is a third lesion anteriorly axial image 33, there is a fourt h lesion lateral segment left hepatic lobe axial image 30, largest lesion is seen anterior segment ri ght hepatic lobe axial image 19, there are at least 3 small additional lesions scattered throughout r emainder of the liver. Largest lesion measures 2.3 x 2.0 cm axial image 19 series 401, dynamic imaging shows peripheral nodu lar enhancement with progressive centripetal filling, imaging characteristics consistent with hemangi karolina. 2 small lesions hepatic dome favor hemangiomas with peripheral nodular enhancement and shows pro gressive centripetal filling. The 2 anterior lesions in the left hepatic lobe on image 431 and 4 1 se deejay 701 show similar imaging characteristics consistent with hemangiomas. Smaller lesion posterior s egment right hepatic lobe seen best image 22 series 401 appears to show progressive 6 centripetal ashleigh ling consistent with hemangioma. Smaller subcentimeter lesions are too small to further characterize. No classic or convincing evidence of metastatic disease. There is small amount of perihepatic ascite s extending laterally and inferiorly now identified. Gallbladder is felt within normal limits. Other: There is new small left pleural effusion. There is new trace perisplenic ascites inferiorly. S pleen is mildly enlarged measuring 14 cm long axis in AP diameter. Pancreas and both adrenal glands a re unremarkable. There is no concerning renal mass or hydronephrosis. There is small amount of scatte red abdominal and left paracolic ascites. No suspicious bowel dilatation is seen. Visualized osseous structures are intact. IMPRESSION: Seen better on MRI versus CT there are multiple hepatic solid masses, 6 largest lesions have MRI imag ing characteristics consistent with benign hemangiomas. No convincing evidence for metastatic disease currently. Short-term MRI follow-up in 3-6 months time is advised to reassess due to complexity and presence of additional small subcentimeter lesions.
== END | disposition home or self-care (01) ==
LOC: RADMRIMAIN 15:02
PROVIDERS: ATTEND Internal Medicine Hematology & Oncology
DX: K76.9 Liver disease, unspecified (principal); R16.0 Hepatomegaly, not elsewhere classified
CPT/HCPCS: 74183; A9581

== ENCOUNTER 2017-07-23 10:08 | Emergency (ER) | payer OTHER ==
[2017-07-23 10:22] VITALS: RESP 18
[2017-07-23] MEDS ORDERED: ONDANSETRON 4 MG/2 ML VIAL IVP STA (10:32)
[2017-07-23] MEDS ORDERED: SODIUM CHLORIDE 0.9% 1,000 ML IV STA ×3 (10:32→12:31)
--- NOTE | 2017-07-23 10:35 | ED ---
General Adult HPI - General Chief complaint: Recheck/Abnormal Lab/Rx Stated complaint: Dehydration Time Seen by Provider: 07/23/17 10:18 Source: patient, RN notes reviewed Mode of arrival: wheelchair Limitations: physical limitation - History of Present Illness Initial comments: Patient 51-year-old female presented to the emergency room today with a chief complaint of nausea and possible dehydration. Patient states that she was recently diagnosed with cancer. Patient states that she did have surgery approximately a month ago to remove a tumor. Patient states that appetites been decreased. Does not that she is diabetic has been taking medication but did not take her Lantus this morning. Patient states that she has been trying to drink fluids but was sent here for possible dehydration. Patient admits to abdominal pain greater on the right side and lower abdomen. She states this is not new prescription something different. Patient does admit that she's had some increased nausea weakness over the last for 5 days. Patient denies any recent fever, chills, shortness of breath, chest pain, back pain, numbness or tingling, dysuria or hematuria, headaches or visual changes, or any other complaints. - Related Data Home Medications Medication Instructions Recorded Confirmed Ibuprofen [Motrin] 800 mg PO TID PRN 06/04/17 07/23/17 buPROPion [Wellbutrin] 75 mg PO DAILY 06/04/17 07/23/17 sitaGLIPtin [Januvia] 100 mg PO DAILY 06/04/17 07/23/17 traZODone HCL 50 mg PO HS 06/04/17 07/23/17 Insulin Glargine,Hum.rec.anlog 18 units SQ DAILY 07/23/17 07/23/17 [Lantus Solostar] Ondansetron [Zofran] 4 - 8 mg PO Q8HR PRN 07/23/17 07/23/17 glipiZIDE [Glucotrol] 10 mg PO AC-BRKFST 07/23/17 07/23/17 Allergies Allergy/AdvReac Type Severity Reaction Status Date / Time morphine AdvReac Hallucinati Verified 07/23/17 10:46 ons Review of Systems ROS Statement: Those systems with pertinent positive or pertinent negative responses have been documented in the HPI. ROS Other: All systems not noted in ROS Statement are negative. Past Medical History Past Medical History: Cancer, Diabetes Mellitus Additional Past Medical History / Comment(s): migraines, rt colon mass(cancer- had sx), lt shoulder arthritis History of Any Multi-Drug Resistant Organisms: None Reported Past Surgical History: Appendectomy, Section, Hysterectomy, Orthopedic Surgery, Tubal Ligation Additional Past Surgical History / Comment(s): eye surgery(on muscles) , lt knee arthrosocpy x2, rt shoulder rotator cuff, lt shoulder bone spur/arthritis, rt colectomy on 06-06-17 Past Anesthesia/Blood Transfusion Reactions: No Reported Reaction Past Psychological History: No Psychological Hx Reported Smoking Status: Former smoker Past Alcohol Use History: None Reported Past Drug Use History: None Reported - Past Family History Father Family Medical History: Hypertension Mother Family Medical History: Diabetes Mellitus, Hypertension, Myocardial Infarction ( [place]) Additional Family Medical History / Comment(s): mi x3 General Exam - General Exam Comments Initial Comments: General: The patient is awake and alert, in no distress, and does not appear acutely ill. Eye: Pupils are equal, round and reactive to light, extra-ocular movements are intact. No nystagmus. There is normal conjunctiva bilaterally. No signs of icterus. Ears, nose, mouth and throat: There are moist mucous membranes and no oral lesions. Neck: The neck is supple, there is no tenderness or JVD. Cardiovascular: There is a regular rate and rhythm. No murmur, rub or gallop is appreciated. Respiratory: Lungs are clear to auscultation, respirations are non-labored, breath sounds are equal. No wheezes, stridor, rales, or rhonchi. Gastrointestinal: Abdomen soft on palpation. Tender lower quadrants. No rebound tenderness. No guarding. No CVA tenderness. Musculoskeletal: Normal ROM, no tenderness. Strength 5/5. Sensation intact. Pulses equal bilaterally 2+. Neurological: A&O x 3. CN II-XII intact, There are no obvious motor or sensory deficits. Coordination appears grossly intact. Speech is normal. Skin: Skin is warm and dry and no rashes or lesions are noted. Psychiatric: Cooperative, appropriate mood & affect, normal judgment. Limitations: physical limitation Course Vital Signs 07/23/17 07/23/17 07/23/17 10:15 12:00 12:47 Temperature 97.9 F 98.1 F Pulse Rate 97 93 Pulse Rate [ 94 Pulse Oximetery ] Respiratory 18 18 18 Rate Blood Pressure 139/68 139/61 Blood Pressure 138/67 [Right Arm Sitting] Blood Pressure 139/69 [Right Arm Standing] Blood Pressure 140/64 [Right Arm Supine] O2 Sat by Pulse 99 98 Oximetry Medical Decision Making - Medical Decision Making Patient reexamined at this time shows no signs of distress. Patient is to feeling better after IV fluids. Options were discussed with patient about admission versus going home. She states she feels couple being discharged at this time. Her labs been reviewed. Urinalysis shows 8 white cells. At this time cultures been added and pending as patient has no symptoms. Patient does have follow-up with at [facility] tomorrow. Patient will be discharged she does have Zofran at home to use for her symptoms. Advised return if symptoms increase or worsen. - Lab Data Result diagrams: 07/23/17 11:25 07/23/17 11:25 Lab Results 07/23/17 07/23/17 07/23/17 Range/Units 10:32 11:25 11:25 WBC 9.9 (3.8-10.6) k/uL RBC 4.59 (3.80-5.40) m/uL Hgb 11.5 (11.4-16.0) gm/dL Hct 35.4 (34.0-46.0) % MCV 77.1 L (80.0-100.0) fL MCH 25.2 (25.0-35.0) pg MCHC 32.6 (31.0-37.0) g/dL RDW 13.3 (11.5-15.5) % Plt Count 375 (150-450) k/uL Neutrophils % 59 % Lymphocytes % 12 % Monocytes % 7 % Eosinophils % 20 % Basophils % 1 % Neutrophils # 5.8 (1.3-7.7) k/uL Lymphocytes # 1.2 (1.0-4.8) k/uL Monocytes # 0.7 (0-1.0) k/uL Eosinophils # 2.0 H (0-0.7) k/uL Basophils # 0.1 (0-0.2) k/uL Manual Slide Review Performed Hypochromasia Slight Poikilocytosis Slight PT 11.4 (9.0-12.0) sec INR 1.2 H (<1.2) APTT 21.9 L (22.0-30.0) sec Sodium (137-145) mmol/L Potassium (3.5-5.1) mmol/L Chloride (98-107) mmol/L Carbon Dioxide (22-30) mmol/L Anion Gap mmol/L BUN (7-17) mg/dL Creatinine (0.52-1.04) mg/dL Est GFR (CKD-EPI)AfAm (>60 ml/min/1.73 sqM) Est GFR (CKD-EPI)NonAf (>60 ml/min/1.73 sqM) Glucose (74-99) mg/dL POC Glucose (mg/dL) 137 H (75-99) mg/dL POC Glu Lime Spreader ID Na Cummings Calcium (8.4-10.2) mg/dL Total Bilirubin (0.2-1.3) mg/dL AST (14-36) U/L ALT (9-52) U/L Alkaline Phosphatase (38-126) U/L Total Protein (6.3-8.2) g/dL Albumin (3.5-5.0) g/dL Urine Color Urine Appearance (Clear) Urine pH (5.0-8.0) Ur Specific Clifford (1.001-1.035) Urine Protein (Negative) Urine Glucose (UA) (Negative) Urine Ketones (Negative) Urine Blood (Negative) Urine Nitrite (Negative) Urine Bilirubin (Negative) Urine Urobilinogen (<2.0) mg/dL Ur Leukocyte Esterase (Negative) Urine RBC (0-5) /hpf Urine WBC (0-5) /hpf Ur Squamous Epith Cells (0-4) /hpf Urine Bacteria (None) /hpf Hyaline Casts (0-2) /lpf Urine Mucus (None) /hpf Acetone, Qual (Negative) 07/23/17 07/23/17 Range/Units 11:25 11:45 WBC (3.8-10.6) k/uL RBC (3.80-5.40) m/uL Hgb (11.4-16.0) gm/dL Hct (34.0-46.0) % MCV (80.0-100.0) fL MCH (25.0-35.0) pg MCHC (31.0-37.0) g/dL RDW (11.5-15.5) % Plt Count (150-450) k/uL Neutrophils % % Lymphocytes % % Monocytes % % Eosinophils % % Basophils % % Neutrophils # (1.3-7.7) k/uL Lymphocytes # (1.0-4.8) k/uL Monocytes # (0-1.0) k/uL Eosinophils # (0-0.7) k/uL Basophils # (0-0.2) k/uL Manual Slide Review Hypochromasia Poikilocytosis PT (9.0-12.0) sec INR (<1.2) APTT (22.0-30.0) sec Sodium 135 L (137-145) mmol/L Potassium 4.3 (3.5-5.1) mmol/L Chloride 99 (98-107) mmol/L Carbon Dioxide 23 (22-30) mmol/L Anion Gap 13 mmol/L BUN 11 (7-17) mg/dL Creatinine 0.43 L (0.52-1.04) mg/dL Est GFR (CKD-EPI)AfAm >90 (>60 ml/min/1.73 sqM) Est GFR (CKD-EPI)NonAf >90 (>60 ml/min/1.73 sqM) Glucose 115 H (74-99) mg/dL POC Glucose (mg/dL) (75-99) mg/dL POC Glu Lime Spreader ID Calcium 10.5 H (8.4-10.2) mg/dL Total Bilirubin 0.8 (0.2-1.3) mg/dL AST 45 H (14-36) U/L ALT 34 (9-52) U/L Alkaline Phosphatase 84 (38-126) U/L Total Protein 5.9 L (6.3-8.2) g/dL Albumin 3.1 L (3.5-5.0) g/dL Urine Color Yellow Urine Appearance Cloudy H (Clear) Urine pH 6.0 (5.0-8.0) Ur Specific Clifford 1.023 (1.001-1.035) Urine Protein 1+ H (Negative) Urine Glucose (UA) Negative (Negative) Urine Ketones 3+ H (Negative) Urine Blood Negative (Negative) Urine Nitrite Negative (Negative) Urine Bilirubin Negative (Negative) Urine Urobilinogen 2.0 (<2.0) mg/dL Ur Leukocyte Esterase Negative (Negative) Urine RBC 8 H (0-5) /hpf Urine WBC 8 H (0-5) /hpf Ur Squamous Epith Cells 16 H (0-4) /hpf Urine Bacteria Occasional H (None) /hpf Hyaline Casts 102 H (0-2) /lpf Urine Mucus Many H (None) /hpf Acetone, Qual Negative (Negative) Disposition Clinical Impression: Nausea & vomiting Disposition: HOME SELF-CARE Condition: Good Instructions: Acute Nausea and Vomiting (ED) Additional Instructions: Please use medication as discussed. Please follow-up with family doctor in the next 2 days. Please return to emergency room if the symptoms increase or worsen or for any other concerns. Is patient prescribed a controlled substance at d/c from ED?: No Referrals: Kunal Man DO [Primary Care Provider] - 1-2 days Time of Disposition: 14:18
[2017-07-23 10:45] LABS: Glucose,Whole Blood 137 mg/dL (75-99)
[2017-07-23 11:42] LABS: Basophils # (A) 0.1 k/uL (0-0.2); Basophils % (A) 1 %; Eosinophils % (A) 20 %; HCT 35.4 % (34.0-46.0); HGB 11.5 gm/dL (11.4-16.0); Hypochromasia Slight; Lymphocytes # (A) 1.2 k/uL (1.0-4.8); Lymphocytes % (A) 12 %; MCH 25.2 pg (25.0-35.0); MCHC 32.6 g/dL (31.0-37.0); MCV 77.1 fL (80.0-100.0); Mean Platelet Volume 6.6; Monocytes # (A) 0.7 k/uL (0-1.0); Monocytes % (A) 7 %; Neutrophils # (A) 5.8 k/uL (1.3-7.7); Neutrophils % (A) 59 %; Platelet Count 375 k/uL (150-450); Poikilocytosis Slight; RBC 4.59 m/uL (3.80-5.40); RDW 13.3 % (11.5-15.5); WBC 9.9 k/uL (3.8-10.6)
[2017-07-23 11:48] LABS: Anion Gap 13 mmol/L; Calcium 10.5 mg/dL (8.4-10.2); Carbon Dioxide 23 mmol/L (22-30); Chloride 99 mmol/L (98-107); Glucose 115 mg/dL (74-99); Sodium 135 mmol/L (137-145); Total Bilirubin 0.8 mg/dL (0.2-1.3)
[2017-07-23 11:49] LABS: Blood Urea Nitrogen 11 mg/dL (7-17); Potassium 4.3 mmol/L (3.5-5.1)
[2017-07-23 11:50] LABS: ALT 34 U/L (9-52); AST 45 U/L (14-36); Albumin 3.1 g/dL (3.5-5.0); Alkaline Phosphatase 84 U/L (38-126); Total Protein 5.9 g/dL (6.3-8.2)
[2017-07-23 12:02] LABS: Appearance,Urine Cloudy (Clear); Bacteria,Urine Occasional /hpf; Bilirubin,Urine Negative (Negative); Blood,Urine Negative (Negative); Color,Urine Yellow; Glucose,Urine (UA) Negative (Negative); Hyaline Casts,Urine 102 /lpf (0-2); Ketones,Urine 3+ (Negative); Leukocyte Esterase,Urine Negative (Negative); Mucus,Urine Many /hpf; Nitrite,Urine Negative (Negative); Protein,Urine 1+ (Negative); RBC,Urine 8 /hpf (0-5); Specific Gravity,Urine 1.023 (1.001-1.035); Squamous Epithelial Cell,Urine 16 /hpf (0-4); WBC,Urine 8 /hpf (0-5)
[2017-07-23 12:06] LABS: INR 1.2 (<1.2)
[2017-07-23 12:07] LABS: Partial Thromboplastin Time 21.9 sec (22.0-30.0); Prothrombin Time 11.4 sec (9.0-12.0)
[2017-07-23 12:55] VITALS: PULSE 94
[2017-07-23 14:27] VITALS: BP 141/70; TEMP 98.8
[2017-07-23 23:02] LABS: Hemoglobin A1C 7.5 % (4.0-6.0)
== END 2017-07-23 14:21 | disposition home or self-care (01) ==
LOC: EC 10:08
DX: R11.2 Nausea with vomiting, unspecified (principal); E86.0 Dehydration; E11.9 Type 2 diabetes mellitus without complications; Z86.69 Personal history of other diseases of the nervous system and sense organs; Z88.5 Allergy status to narcotic agent; Z79.4 Long term (current) use of insulin; Z79.84 Long term (current) use of oral hypoglycemic drugs; Z79.899 Other long term (current) drug therapy; Z87.891 Personal history of nicotine dependence
CPT/HCPCS: 99284; 96374; 96361 ×2; 36415; 80053; 82009; 85025; 85610; 85730; 81001; 87040; 87086; 83036; J2405